=== PATIENT | female | born 1960 | race Caucasian/White ===

== ENCOUNTER 2023-07-30 13:46 | Emergency (ER) | payer OTHER, SELFPAY ==
[2023-07-30 13:50] VITALS: BP 117/80
[2023-07-30 14:01] VITALS: BP 147/76
[2023-07-30 14:28] LABS: % Basophils 1.1 % (0-2); % Eosinophils 1.8 % (0-6); % Immature Granulocytes 0.5 % (0-0.5); % Lymphocytes 15.6 % (20.5-51.1); % Monocytes 6.2 % (1.7-9.3); % Neutrophils 74.8 % (42.2-75.2); Absolute Basophils 0.1 10^3/uL (0-0.2); Absolute Eosinophils 0.2 10^3/uL (0-0.7); Absolute Lymphocytes 1.4 10^3/uL (1.2-3.4); Absolute Monocytes 0.6 10^3/uL (0.1-0.6); Absolute Neutrophils 6.6 10^3/uL (1.4-6.5); Hematocrit 42.9 % (37.0-47.0); Hemoglobin 15.4 g/dL (12.0-16.0); Mean Corp Hgb Conc. 35.9 g/dL (33.0-37.0); Mean Corpuscular Hgb 35.6 pg (27.0-31.0); Mean Corpuscular Volume 99.3 fL (81.0-99.0); Mean Platelet Volume 9.5 fL (7.4-10.4); Nucleated Red Blood Cells % 0 %; Platelet Count 336 10^3/uL (130-400); Red Blood Cell Count 4.32 10^6/uL (4.20-5.40); Red Cell Dist. Width 14.9 % (11.5-14.5); White Blood Cell Count 8.9 10^3/uL (4.8-10.8)
[2023-07-30 14:39] LABS: ALT (SGPT) 16 U/L (0-35); AST (SGOT) 26 U/L (14-36); Albumin 4.4 g/dl (3.5-5.0); Alkaline Phosphatase 173 U/L (38-126); Blood Urea Nitrogen 19 mg/dl (7-17); Calcium 9.9 mg/dl (8.4-10.2); Carbon Dioxide 25 mmol/L (22-30); Chloride 100 mmol/L (98-107); Glucose 124 mg/dl (70-99); Potassium 3.4 mmol/L (3.5-5.1); Sodium 134 mmol/L (135-145); Total Bilirubin 2.2 mg/dl (0.2-1.3); Total Protein 7.2 g/dl (6.3-8.2); eGFR > 60.00
[2023-07-30 15:00] VITALS: BP 129/92
--- NOTE | 2023-07-30 15:36 | ED.GENMED ---
History of Present Illness
General
Chief Complaint: Heart Rate Problem
Source: patient
Exam Limitations: none
Time Seen by Provider: 07/30/23 14:02
Travel History
Have you had any contact with someone who has COVID-19?: No
Do you have any symptoms of coronavirus? Fever > 100 degrees, chills, cough, shortness of breath, sore throat, loss of taste or smell, muscle aches, or headache?: No
History of Present Illness
History of Present Illness:
Patient went into atrial fibrillation about 36 hours ago. No chest pain shortness of breath mild lightheadedness. She took an extra Cardizem this morning, 480 mg total she is on thinners and is faithful with her medications
Past History
Past History
ED Past Medical History: Arrthythmia (Paroxysmal atrial fibrillation), Cancer (Breast cancer), HTN, Hypercholesterolemia and Other (History of alcohol abuse and sobriety)
ED Past Surgical History: Gynecological (Right mastectomy. Breast biopsy May 09, 2021)
Social History
Tobacco: Non-smoker
Alcohol: Occasional
Drug: None
Personal: Single
Living: alone
Employment: Employed
Family History
Family History: Other (Noncontributory)
Review of Systems
Review of Systems
All Other Systems: Not applicable
Constitutional: Denies fever
Respiratory: Reports no symptoms
Cardiac: Denies chest pain or syncope
Phy Exam
Physical Exam
Physical Exam:
GENERAL: Alert and oriented in no apparent distress
EYE: Orbits normal.
NECK: Supple, no significant adenopathy.
ENT: Pharynx without erythema
CARDIAC: Mildly irregular and tachycardic
LUNGS: Clear breath sounds,normal
ABDOMEN: Soft, without focal tenderness or distention
NEUROLOGICAL: Alert and oriented , grossly non-focal
SKIN: Warm and dry, no rash or lesion, no discoloration, skin intact.
MUSCULOSKELETAL: No edema,no deformity.Good color
PSYCH: Normal and appropriate interaction.
Course
Orders/Labs/Results
Orders:
Orders
07/30/23 13:54
Electrocardiogram (*1) Urgent
Reason for Study: Tachycardia
EKG- Treatment ONCE
07/30/23 14:08
Complete Blood Count/With Diff Urgent
Comprehensive Metabolic Panel Urgent
Abnormal Lab Results
07/30/23
14:08
MCV 99.3 H fL
(81.0-99.0)
MCH 35.6 H pg
(27.0-31.0)
RDW 14.9 H %
(11.5-14.5)
Absolute Neuts (auto) 6.6 H 10^3/uL
(1.4-6.5)
Lymphocytes % 15.6 L %
(20.5-51.1)
Sodium 134 L mmol/L
(135-145)
Potassium 3.4 L mmol/L
(3.5-5.1)
BUN 19 H mg/dl
(7-17)
Glucose 124 H mg/dl
(70-99)
Total Bilirubin 2.2 H mg/dl
(0.2-1.3)
Alkaline Phosphatase 173 H U/L
(38-126)
07/30/23 14:08
07/30/23 14:08
Vital Signs
Initial and Last Documented VS:
Initial Vital Signs
Temp Pulse Resp BP Pulse Ox
98.4 F 146 18 117/80 98
07/30/23 13:50 07/30/23 13:50 07/30/23 13:50 07/30/23 13:50 07/30/23 13:50
Last Documented Vital Signs
Temp Pulse Resp BP Pulse Ox
98.4 F 107 14 129/92 97
07/30/23 13:50 07/30/23 15:30 07/30/23 15:30 07/30/23 15:00 07/30/23 15:30
*Pulse Oximetry
Patient hypoxic: no
*EKG
Interpreted by ED Provider?: Yes
Interpretation: abnormal
Comparison EKG: changes noted
Heart Rate: 106
Rate: tachycardiac
Rhythm: a-fib
Winn: normal axis
Interval: normal interval
QRS Pattern: normal QRS
Ischemia: non-specific ST changes
*Science Professor Interpretation
Rate: tachycardiac
Interpretation: abnormal
Heart Rate: 110
Rhythm: a-fib
*Critical Care Note
Total Time (30-74mins, 75-104mins- exclusive of procedures): Not Applicable
Update Note
Update Note:
Patient remains in atrial fibrillation. Heart rate generally running about 100-1 10. Medically stable with no severe issues. Patient noted she had significant asystole with 1 cardioversion on rate control meds. Discussed with cardiology. Given
that patient had 480 mg of Cardizem CD they are very leery to have his cardiovert today with a concern for prolonged asystolic episode after cardioversion. They would prefer going home remaining in A-fib and close follow-up.
ED Attending Note
-
Portions of this chart may have been created with voice recognition software.� Occasional wrong word or��sound alike� substitutions may have occurred due to the inherent limitations of voice recognition software.
Discharge Plan
Departure
Patient Disposition: Home (Routine Discharge)
Date of Disposition: 07/30/23
Time of Disposition: 15:37
Patient with high blood pressure during this ER visit?: No
Discharge Problem:
Atrial fibrillation/RVR
Instructions: Atrial Fibrillation (DC), BLOOD PRESSURE
Prescriptions:
No Action
lorazepam 0.5 MG tablet
0.5 mg PO DAILYPRN PRN (Reason: severe anxiety)
Patient Comments:
07/30/2023, pt. filled this med. on 06/17/2023 for 45 tablets according to PDMP.
hydrochlorothiazide 25 MG tablet
25 mg PO DAILY
irbesartan 300 MG tablet
300 mg PO DAILY
letrozole 2.5 mg Tablet
2.5 mg PO DAILY
Xarelto 20 mg Tablet
20 mg PO DAILY
Ca-D3-mag [id number] [Calcium 600-D3 Plus (mag-zinc)] 600 mg calcium- 20 mcg-50 mg Tablet
1 tab PO BID
diltiazem HCl 240 mg Capsule,Ext.Rel 24h Degradable
240 mg PO DAILY
Patient Comments:
07/30/2023, per pt., capsules taken a few hours apart.
diltiazem HCl 240 mg Capsule,Ext.Rel 24h Degradable
240 mg PO DAILY PRN (Reason: afib)
ibuprofen 200 mg Tablet
600 mg PO DAILYPRN PRN (Reason: mild pain)
Referrals:
Allyssa Thomason MD [Family Provider] -
Activity Restrictions/Additional Instructions:
As we discussed, call the systems program manager for close follow-up in the next day or so. Continue your rate control medication. They may hold the rate control prior to cardioversion if you do not self convert
Interventions
Interventions:
*Risk Screen - Suicide Last Done: 07/30/23 13:50
*General Assessment Last Done: 07/30/23 13:50
*Neglect/Abuse Screening Last Done: 07/30/23 13:50
ED- Fall Risk Assessment Last Done: 07/30/23 14:06
*ED COVID-19 Vaccine History Last Done: 07/30/23 14:07
ED- Cardiac Assessment Last Done: 07/30/23 14:06
ED- Pulmonary Assessment Last Done: 07/30/23 14:06
== END 2023-07-30 15:49 | disposition home or self-care (01) ==
LOC: EMR 13:46
PROVIDERS: EMERGENCY PHYSICIAN Emergency Medicine; FAMILY PHYSICIAN Family Medicine
DX: I48.91 Unspecified atrial fibrillation (principal); I10 Essential (primary) hypertension; E78.00 Pure hypercholesterolemia, unspecified; Z85.3 Personal history of malignant neoplasm of breast; Z90.11 Acquired absence of right breast and nipple
CPT/HCPCS: 99283; 80053; 85025; 93005

== ENCOUNTER → 2023-08-01 10:23 | Day surgery (SDC) | payer OTHER, SELFPAY ==
[2023-08-01] MEDS: CARDIZEM CD 240 MG PO (11:20)
== END ==
LOC: CATH 10:23
PROVIDERS: ATTENDING PHYSICIAN Internal Medicine; FAMILY PHYSICIAN Family Medicine
DX: I48.0 Paroxysmal atrial fibrillation (principal); Z53.09 Procedure and treatment not carried out because of other contraindication; I10 Essential (primary) hypertension; G47.33 Obstructive sleep apnea (adult) (pediatric); Z85.3 Personal history of malignant neoplasm of breast; Z79.01 Long term (current) use of anticoagulants
CPT/HCPCS: 93005 ×2

== ENCOUNTER 2023-09-01 14:33 | Emergency (ER) | payer OTHER, SELFPAY ==
[2023-09-01 14:39] VITALS: BP 130/105
[2023-09-01 14:49] VITALS: BP 153/99
[2023-09-01 15:00] VITALS: BP 152/113
[2023-09-01 15:05] LABS: % Basophils 1.1 % (0-2); % Immature Granulocytes 0.2 % (0-0.5); % Lymphocytes 8.7 % (20.5-51.1); % Monocytes 1.4 % (1.7-9.3); % Neutrophils 88.6 % (42.2-75.2); Absolute Basophils 0.1 10^3/uL (0-0.2); Absolute Lymphocytes 0.6 10^3/uL (1.2-3.4); Absolute Monocytes 0.1 10^3/uL (0.1-0.6); Absolute Neutrophils 5.8 10^3/uL (1.4-6.5); Hematocrit 43.6 % (37.0-47.0); Hemoglobin 14.8 g/dL (12.0-16.0); Mean Corp Hgb Conc. 33.9 g/dL (33.0-37.0); Mean Corpuscular Volume 97.1 fL (81.0-99.0); Mean Platelet Volume 9.3 fL (7.4-10.4); Nucleated Red Blood Cells % 0 %; Platelet Count 347 10^3/uL (130-400); Red Blood Cell Count 4.49 10^6/uL (4.20-5.40); Red Cell Dist. Width 14.6 % (11.5-14.5); White Blood Cell Count 6.5 10^3/uL (4.8-10.8)
--- NOTE | 2023-09-01 15:06 | ED.GENMED ---
History of Present Illness
General
Chief Complaint: Cardiac Symptoms
Source: patient
Exam Limitations: none
Time Seen by Provider: 09/01/23 14:57
Travel History
Have you had any contact with someone who has COVID-19?: No
Do you have any symptoms of coronavirus? Fever > 100 degrees, chills, cough, shortness of breath, sore throat, loss of taste or smell, muscle aches, or headache?: No
History of Present Illness
History of Present Illness:
See MDM
Past History
Past History
ED Past Medical History: Arrthythmia (Paroxysmal atrial fibrillation), Cancer (Breast cancer), HTN, Hypercholesterolemia and Other (History of alcohol abuse and sobriety)
ED Past Surgical History: Gynecological (Right mastectomy. Breast biopsy May 09, 2021)
Social History
Tobacco: Non-smoker
Alcohol: Occasional
Drug: None
Personal: Single
Living: alone
Employment: Employed
Family History
Family History: Other (Noncontributory)
Phy Exam
Physical Exam
Physical Exam:
See MDM
Course
Orders/Labs/Results
Orders:
Orders
09/01/23 14:39
EKG [Electrocardiogram (*1)] Urgent
Reason for Study: Atrial Fibrillation
09/01/23 14:40
EKG- Treatment ONCE
09/01/23 14:54
Complete Blood Count/With Diff Urgent
Comprehensive Metabolic Panel Urgent
Troponin I Urgent
09/01/23 15:05
0.9% Sodium Chloride 1000 ml [Nss] 1,000 ml IV BOLUS
Diltiazem HCl [Cardizem] 20 mg IV NOW STA
09/01/23 15:18
Electrocardiogram (*1) Urgent
Reason for Study: Atrial Fibrillation
EKG- Treatment ONCE
Abnormal Lab Results
09/01/23
14:54
MCH 33.0 H pg
(27.0-31.0)
RDW 14.6 H %
(11.5-14.5)
Absolute Lymphs (auto) 0.6 L 10^3/uL
(1.2-3.4)
Neutrophils % 88.6 H %
(42.2-75.2)
Lymphocytes % 8.7 L %
(20.5-51.1)
Monocytes % 1.4 L %
(1.7-9.3)
BUN 30 H mg/dl
(7-17)
Glucose 187 H mg/dl
(70-99)
Total Bilirubin 1.6 H mg/dl
(0.2-1.3)
Alkaline Phosphatase 178 H U/L
(38-126)
09/01/23 14:54
09/01/23 14:54
Vital Signs
Initial and Last Documented VS:
Initial Vital Signs
Temp Pulse Resp BP Pulse Ox
97.8 F 52 17 130/105 99
09/01/23 14:39 09/01/23 14:39 09/01/23 14:39 09/01/23 14:39 09/01/23 14:39
Last Documented Vital Signs
Temp Pulse Resp BP Pulse Ox
97.8 F 75 15 152/113 97
09/01/23 14:39 09/01/23 16:00 09/01/23 16:00 09/01/23 15:07 09/01/23 16:00
MDM/Problems Addressed
Differential Diagnosis Includes:
HPI and MDM Narrative:
62-year-old female presenting with A-fib. She felt palpitations since 3 AM. She has a history of paroxysmal A-fib and is pending an ablation later in the next month. She is compliant with her Eliquis and her diltiazem. Patient has been
cardioverted in the past and has auto converted as well. She denies chest pain or shortness of breath
Upon my examination, patient intermittently appears to be going into A-fib with RVR and sinus rhythm on the monitor. Will give dose of Cardizem and continue to monitor
Physical exam
General: Well appearing and non-toxic
HEENT: protecting airway
Neck: appears supple
CV: No evidence of cyanosis. Tachycardic and irregular
Resp: No accessory muscle use
Abd: Non-distended
Extremities: No deformities. No calf tenderness or
Neuro: alert
Psych: Normal affect
Skin: Intact
Problems Addressed including Acute and Chronic Conditions affecting care:
1. Paroxysmal A-fib
Acuity: acute
Prognosis: unstable
Details: Will give dose of IV Cardizem in an attempt to chemically cardiovert
Updates
3:15 PM patient converted into sinus rhythm and feeling better
4:15 PM patient remains in sinus rhythm and feels comfortable going home
Differential Diagnosis (but not limited to): A-fib, dehydration
Testing considered: Troponin, D-dimer
Drug therapy (if applicable): OTC meds, please see d/c instruction regarding Rx drugs
Amount and/or Complexity of Data Reviewed
Clinical info obtained from: Patient
External data reviewed: N/A
Labs I independently reviewed (but not limited to): Troponin normal
Radiology: N/A
Pulse Ox: not hypoxic
EKG independently reviewed: A-fib, normal axis, no STEMI
Digital Traffic Coordinator: Intermittent between A-fib and sinus rhythm
Critical Care: N/A
Risk of Complication:
Social Determinants of health: Good social support
Discussed with other providers: N/A
Escalation of Care includes Admit/Obs: After being observed in the Emergency Department, pt stable for discharge.
Occasional wrong word or 'sound a like' substitutions may have occurred due to the inherent limitations of voice recognition software. Read the chart carefully and recognize, using context, where substitutions have occurred.
*Critical Care Note
Total Time (30-74mins, 75-104mins- exclusive of procedures): Not Applicable
ED Attending Note
-
Portions of this chart may have been created with voice recognition software.� Occasional wrong word or��sound alike� substitutions may have occurred due to the inherent limitations of voice recognition software.
Discharge Plan
Departure
Patient Disposition: Home (Routine Discharge)
Date of Disposition: 09/01/23
Time of Disposition: 16:11
Patient with high blood pressure during this ER visit?: Yes
Discharge Problem:
A-fib
Instructions: Atrial Fibrillation (DC), BLOOD PRESSURE
Prescriptions:
No Action
lorazepam 0.5 MG tablet
0.5 mg PO DAILYPRN PRN (Reason: severe anxiety)
Patient Comments:
07/30/2023, pt. filled this med. on 06/17/2023 for 45 tablets according to PDMP.
hydrochlorothiazide 25 MG tablet
25 mg PO DAILY
irbesartan 300 MG tablet
300 mg PO DAILY
letrozole 2.5 mg Tablet
2.5 mg PO DAILY
Xarelto 20 mg Tablet
20 mg PO DAILY
Ca-D3-mag [id number]-[id number]-bor [Calcium 600-D3 Plus (mag-zinc)] 600 mg calcium- 20 mcg-50 mg Tablet
1 tab PO BID
diltiazem HCl 240 mg Capsule,Ext.Rel 24h Degradable
240 mg PO DAILY
Patient Comments:
07/30/2023, per pt., capsules taken a few hours apart.
diltiazem HCl 240 mg Capsule,Ext.Rel 24h Degradable
240 mg PO DAILY PRN (Reason: afib)
ibuprofen 200 mg Tablet
600 mg PO DAILYPRN PRN (Reason: mild pain)
Referrals:
Allyssa Fernandez MD [Family Provider] -
Activity Restrictions/Additional Instructions:
Please return for any worsening symptoms.
You may return at any time if you have further concerns.
Please follow up with your doctor at the first available appointment, preferably this week.
Thank you for choosing [facility].
Interventions
Interventions:
*Risk Screen - Suicide Last Done: 09/01/23 14:39
*General Assessment Last Done: 09/01/23 14:39
*Neglect/Abuse Screening Last Done: 09/01/23 14:39
*ED COVID-19 Vaccine History Last Done: 09/01/23 14:39
ED- Pulmonary Assessment Last Done: 09/01/23 14:51
ED- Cardiac Assessment Last Done: 09/01/23 14:51
[2023-09-01] MEDS: CARDIZEM 20 MG IV (15:07)
[2023-09-01] MEDS: NSS 1000 IV (15:08)
[2023-09-01 15:18] LABS: ALT (SGPT) 17 U/L (0-35); AST (SGOT) 27 U/L (14-36); Albumin 4.5 g/dl (3.5-5.0); Alkaline Phosphatase 178 U/L (38-126); Blood Urea Nitrogen 30 mg/dl (7-17); Calcium 9.7 mg/dl (8.4-10.2); Carbon Dioxide 25 mmol/L (22-30); Chloride 100 mmol/L (98-107); Glucose 187 mg/dl (70-99); Potassium 3.5 mmol/L (3.5-5.1); Sodium 135 mmol/L (135-145); Total Bilirubin 1.6 mg/dl (0.2-1.3); Total Protein 7.2 g/dl (6.3-8.2); eGFR > 60.00
[2023-09-01 15:29] LABS: Troponin I < 0.012 ng/ml
== END 2023-09-01 16:17 | disposition home or self-care (01) ==
LOC: EMR 14:33
PROVIDERS: EMERGENCY PHYSICIAN Student in an Organized Health Care Education/Training Program; FAMILY PHYSICIAN Internal Medicine
DX: I48.0 Paroxysmal atrial fibrillation (principal); I10 Essential (primary) hypertension; Z79.01 Long term (current) use of anticoagulants
CPT/HCPCS: 99284; 96374; 96361; 80053; 84484; 85025; 93005

== ENCOUNTER 2023-11-09 12:33 | Emergency (ER) | payer OTHER, SELFPAY ==
[2023-11-09] VITALS (7 sets, daily range): BP systolic 114–157; BP diastolic 62–135
[2023-11-09 13:31] LABS: % Basophils 0.8 % (0-2); % Eosinophils 2.3 % (0-6); % Immature Granulocytes 0.2 % (0-0.5); % Lymphocytes 17.2 % (20.5-51.1); % Monocytes 5.9 % (1.7-9.3); % Neutrophils 73.6 % (42.2-75.2); Absolute Basophils 0.1 10^3/uL (0-0.2); Absolute Eosinophils 0.2 10^3/uL (0-0.7); Absolute Lymphocytes 1.5 10^3/uL (1.2-3.4); Absolute Monocytes 0.5 10^3/uL (0.1-0.6); Absolute Neutrophils 6.5 10^3/uL (1.4-6.5); Hematocrit 40.8 % (37.0-47.0); Hemoglobin 14.6 g/dL (12.0-16.0); Mean Corp Hgb Conc. 35.8 g/dL (33.0-37.0); Mean Corpuscular Volume 94.9 fL (81.0-99.0); Mean Platelet Volume 9.4 fL (7.4-10.4); Nucleated Red Blood Cells % 0 %; Platelet Count 251 10^3/uL (130-400); Red Cell Dist. Width 13.6 % (11.5-14.5); White Blood Cell Count 8.9 10^3/uL (4.8-10.8)
[2023-11-09] MEDS: CARDIZEM 10 MG IV (13:39)
[2023-11-09] MEDS: CARDIZEM 125 IV (13:47)
[2023-11-09 13:58] LABS: Chloride 100 mmol/L (98-107)
[2023-11-09 14:02] LABS: Blood Urea Nitrogen 26 mg/dl (7-17); Calcium 9.3 mg/dl (8.4-10.2); Carbon Dioxide 27 mmol/L (22-30); Glucose 114 mg/dl (70-99); Potassium 3.4 mmol/L (3.5-5.1); Sodium 137 mmol/L (135-145); eGFR > 60.00
--- NOTE | 2023-11-09 14:37 | ED.GENMED ---
History of Present Illness
<Farhad Lozada MD - Last Filed: 11/10/23 14:04>
General
Chief Complaint: Chest Pain
Source: patient
Exam Limitations: none
Time Seen by Provider: 11/09/23 12:57
Travel History
Have you had any contact with someone who has COVID-19?: No
Do you have any symptoms of coronavirus? Fever > 100 degrees, chills, cough, shortness of breath, sore throat, loss of taste or smell, muscle aches, or headache?: No
History of Present Illness
History of Present Illness:
Patient went into atrial fibrillation early yesterday morning palpitations some lightheadedness. No chest pain. History of same. Faithful with her anticoagulation. On Cardizem to 40/day
Past History
<Farhad Lozada MD - Last Filed: 11/10/23 14:04>
Past History
ED Past Medical History: Arrthythmia (Paroxysmal atrial fibrillation), Cancer (Breast cancer), HTN, Hypercholesterolemia and Other (History of alcohol abuse and sobriety)
ED Past Surgical History: Gynecological (Right mastectomy. Breast biopsy May 09, 2021)
Social History
Tobacco: Non-smoker
Alcohol: Occasional
Drug: None
Personal: Single
Living: alone
Employment: Employed
Family History
Family History: Other (Noncontributory)
Review of Systems
<Farhad Lozada MD - Last Filed: 11/10/23 14:04>
Review of Systems
All Other Systems: Not applicable
Cardiac: Denies chest pain or syncope
Phy Exam
<Farhad Lozada MD - Last Filed: 11/10/23 14:04>
Physical Exam
Physical Exam:
GENERAL: Alert and oriented in no apparent distress
EYE: Orbits normal.
NECK: Supple
CARDIAC: Tachycardic and irregular
LUNGS: Clear breath sounds,normal
ABDOMEN: Soft, without focal tenderness or distention
NEUROLOGICAL: Alert and oriented , grossly non-focal
SKIN: Warm and dry, no rash or lesion, no discoloration, skin intact.
MUSCULOSKELETAL: No edema,no deformity.Good color
PSYCH: Normal and appropriate interaction.
Scores
<Farhad Lozada MD - Last Filed: 11/10/23 14:04>
Heart Score for Chest Pain Patients
STEMI patient?: Not applicable
Course
<Farhad Lozada MD - Last Filed: 11/10/23 14:04>
Orders/Labs/Results
Orders:
Orders
11/09/23 12:36
EKG [Electrocardiogram (*1)] Urgent
Reason for Study: Chest Pain
11/09/23 12:37
EKG- Treatment ONCE
11/09/23 13:20
Diltiazem 125 mg/125 ml Nss [Cardizem] 125 mg in 125 ml IV NOW
Initial dose in mg/hr, then titrate:: 5
Titrate to keep:: Heart rate 80-100 bpm
Titrate by mg/hr:: 5 mg/hr
Frequency of titrations (minutes):: 15
Maximum dose in mg/hr:: 15
Diltiazem HCl [Cardizem] 10 mg IV NOW STA
11/09/23 13:25
Basic Metabolic Panel Urgent
Complete Blood Count/With Diff Urgent
11/09/23 16:45
Diltiazem HCl [Cardizem] 20 mg IV NOW STA
11/09/23 17:51
Electrocardiogram (*1) Stat
Reason for Study: Bradycardia / Tachycardia
EKG- Treatment ONCE
Abnormal Lab Results
11/09/23
13:25
MCH 34.0 H pg
(27.0-31.0)
Lymphocytes % 17.2 L %
(20.5-51.1)
Potassium 3.4 L mmol/L
(3.5-5.1)
BUN 26 H mg/dl
(7-17)
Glucose 114 H mg/dl
(70-99)
11/09/23 13:25
11/09/23 13:25
Vital Signs
Initial and Last Documented VS:
Initial Vital Signs
Temp Pulse Resp BP Pulse Ox
99.3 F 113 18 144/104 100
11/09/23 12:42 11/09/23 12:42 11/09/23 12:42 11/09/23 12:42 11/09/23 12:42
Last Documented Vital Signs
Temp Pulse Resp BP Pulse Ox
99.3 F 94 18 137/87 97
11/09/23 12:42 11/09/23 18:00 11/09/23 18:00 11/09/23 17:03 11/09/23 16:58
<Jf Ordaz MD - Last Filed: 11/09/23 18:12>
Orders/Labs/Results
Orders:
Orders
11/09/23 12:36
EKG [Electrocardiogram (*1)] Urgent
Reason for Study: Chest Pain
11/09/23 12:37
EKG- Treatment ONCE
11/09/23 13:20
Diltiazem 125 mg/125 ml Nss [Cardizem] 125 mg in 125 ml IV NOW
Initial dose in mg/hr, then titrate:: 5
Titrate to keep:: Heart rate 80-100 bpm
Titrate by mg/hr:: 5 mg/hr
Frequency of titrations (minutes):: 15
Maximum dose in mg/hr:: 15
Diltiazem HCl [Cardizem] 10 mg IV NOW STA
11/09/23 13:25
Basic Metabolic Panel Urgent
Complete Blood Count/With Diff Urgent
11/09/23 16:45
Diltiazem HCl [Cardizem] 20 mg IV NOW STA
11/09/23 17:51
Electrocardiogram (*1) Stat
Reason for Study: Bradycardia / Tachycardia
EKG- Treatment ONCE
Abnormal Lab Results
11/09/23
13:25
MCH 34.0 H pg
(27.0-31.0)
Lymphocytes % 17.2 L %
(20.5-51.1)
Potassium 3.4 L mmol/L
(3.5-5.1)
BUN 26 H mg/dl
(7-17)
Glucose 114 H mg/dl
(70-99)
11/09/23 13:25
11/09/23 13:25
Vital Signs
Initial and Last Documented VS:
Initial Vital Signs
Temp Pulse Resp BP Pulse Ox
99.3 F 113 18 144/104 100
11/09/23 12:42 11/09/23 12:42 11/09/23 12:42 11/09/23 12:42 11/09/23 12:42
Last Documented Vital Signs
Temp Pulse Resp BP Pulse Ox
99.3 F 94 18 137/87 97
11/09/23 12:42 11/09/23 18:00 11/09/23 18:00 11/09/23 17:03 11/09/23 16:58
<Farhad Lozada MD - Last Filed: 11/10/23 14:04>
MDM/Problems Addressed
Differential Diagnosis Includes:
PAF/RVR. Long history of same. Medically stable. Discussed cardioversion versus rate control with hopeful spontaneous cardioversion on the calcium channel meghna. This has happened multiple times in the past. Patient would prefer this
approach. She is aware that if she does not convert she will need to go home with further rate control to follow-up for outpatient planned cardioversion
<Farhad Lozada MD - Last Filed: 11/10/23 14:04>
*Pulse Oximetry
Patient hypoxic: no
*EKG
Interpretation: abnormal
Comparison EKG: changes noted
Heart Rate: 127
Rate: tachycardiac
Rhythm: a-fib
[place]: normal axis
Interval: normal interval
QRS Pattern: normal QRS
Ischemia: non-specific ST changes
*Combatant Diver Officer Interpretation
Rate: tachycardiac
Interpretation: abnormal
Heart Rate: 110
Rhythm: a-fib
*Critical Care Note
Total Time (30-74mins, 75-104mins- exclusive of procedures): 40
Data Reviewed
Review of Other/Old Records Reveals: Labs and Records
<Farhad Lozada MD - Last Filed: 11/10/23 14:04>
Update Note
Update Note:
Patient still in atrial fibrillation. Mild RVR. If she continues to remain stable but does not convert she will take an extra 120 mg Cardizem. Reviewed this with cardiology
UPDATE (Jf Ordaz MD)
I saw and examined patient after signout and reviewed all labs and imaging.
Focused HPI: 62-year-old female with history as documented notable for A-fib on Xarelto who sees Dr. Rene for cardiology who presents to the emergency room in A-fib with RVR. She is scheduled for an outpatient ablation with Dr. Peterson on
. Primary complaint is palpitations and pressure that she reports onset was yesterday morning. She has been compliant with all meds including her Cardizem and Xarelto.
Physical exam: Awake alert not in distress. Mildly hypertensive in triage normalized by my assessment. On my assessment she remains tachycardic irregularly irregular on the monitor consistent with A-fib. She has no cardiac rubs gallops or
murmurs. No edema in her extremities.
Medical Decision Making: Patient initially evaluated and treated for A-fib with RVR�she had lab work including a CBC which was unremarkable, CMP which showed marginal hypokalemia. There was consideration given to ED cardioversion but there was
concern as during a prior cardioversion she had a significant (reportedly 9-second long) pause. Apparently after discussion with cardiology and patient decision was made to instead attempt rate control here in the emergency room. She was given 10
mg of IV diltiazem as a bolus and then was started on a steady rate of 7.5 mg/h infusion�there was apparently concern about titrating beyond this due to a soft blood pressure. On my assessment she has been here for about 3 hours and remains with
heart rate fluctuating between 120s and 130s despite diltiazem bolus and infusion as above. Will repeat bolus at 20 mg IV push and continue to monitor.
Status post additional diltiazem bolus patient's heart rate remains essentially unchanged. I had a long discussion with the patient and she asked whether cardioversion is a possibility here�discussed case with cardiology they are comfortable with
attempt at ED cardioversion despite history of pauses�transient pauses are not unusual status post cardioversion. While discussing consent for cardioversion with the patient her heart rate came down to the 80s and appeared sinus on the monitor,
repeat EKG confirmed spontaneous conversion to sinus rhythm. Will discharge patient and she will follow-up with her starch cooker as an outpatient for planned ablation. Spoke about return precautions and all questions answered.
cc=40 minutes
<Jf Ordaz MD - Last Filed: 11/09/23 18:12>
Update Note
Update Note:
Patient still in atrial fibrillation. Mild RVR. If she continues to remain stable but does not convert she will take an extra 120 mg Cardizem. Reviewed this with cardiology
UPDATE (Jf Ordaz MD)
I saw and examined patient after signout and reviewed all labs and imaging.
Focused HPI: 62-year-old female with history as documented notable for A-fib on Xarelto who sees Dr. Rene for cardiology who presents to the emergency room in A-fib with RVR. She is scheduled for an outpatient ablation with Dr. Peterson on
. Primary complaint is palpitations and pressure that she reports onset was yesterday morning. She has been compliant with all meds including her Cardizem and Xarelto.
Physical exam: Awake alert not in distress. Mildly hypertensive in triage normalized by my assessment. On my assessment she remains tachycardic irregularly irregular on the monitor consistent with A-fib. She has no cardiac rubs gallops or
murmurs. No edema in her extremities.
Medical Decision Making: Patient initially evaluated and treated for A-fib with RVR�she had lab work including a CBC which was unremarkable, CMP which showed marginal hypokalemia. There was consideration given to ED cardioversion but there was
concern as during a prior cardioversion she had a significant (reportedly 9-second long) pause. Apparently after discussion with cardiology and patient decision was made to instead attempt rate control here in the emergency room. She was given 10
mg of IV diltiazem as a bolus and then was started on a steady rate of 7.5 mg/h infusion�there was apparently concern about titrating beyond this due to a soft blood pressure. On my assessment she has been here for about 3 hours and remains with
heart rate fluctuating between 120s and 130s despite diltiazem bolus and infusion as above. Will repeat bolus at 20 mg IV push and continue to monitor.
Status post additional diltiazem bolus patient's heart rate remains essentially unchanged. I had a long discussion with the patient and she asked whether cardioversion is a possibility here�discussed case with cardiology they are comfortable with
attempt at ED cardioversion despite history of pauses�transient pauses are not unusual status post cardioversion. While discussing consent for cardioversion with the patient her heart rate came down to the 80s and appeared sinus on the monitor,
repeat EKG confirmed spontaneous conversion to sinus rhythm. Will discharge patient and she will follow-up with her starch cooker as an outpatient for planned ablation. Spoke about return precautions and all questions answered.
ED Attending Note
<Farhad Lozada MD - Last Filed: 11/10/23 14:04>
-
Portions of this chart may have been created with voice recognition software.� Occasional wrong word or��sound alike� substitutions may have occurred due to the inherent limitations of voice recognition software.
Discharge Plan
Departure
Patient Disposition: Home (Routine Discharge)
Date of Disposition: 11/09/23
Time of Disposition: 18:06
Patient with high blood pressure during this ER visit?: Yes
Discharge Problem:
Atrial fibrillation
Instructions: Atrial Fibrillation (DC)
Prescriptions:
No Action
lorazepam 0.5 MG tablet
0.5 mg PO DAILYPRN PRN (Reason: severe anxiety)
Patient Comments:
11/09/2023: last filled 10/25/23, 30 tabs for 30 days from [facility]
hydrochlorothiazide 25 MG tablet
25 mg PO DAILY
irbesartan 300 MG tablet
300 mg PO DAILY
letrozole 2.5 mg Tablet
2.5 mg PO DAILY
Xarelto 20 mg Tablet
20 mg PO DAILY
Ca-D3-mag [id number]-aba-adelaide-bor [Calcium 600-D3 Plus (mag-zinc)] 600 mg calcium- 20 mcg-50 mg Tablet
1 tab PO BID
diltiazem HCl 240 mg Capsule,Ext.Rel 24h Degradable
240 mg PO DAILY
Patient Comments:
07/30/2023, per pt., capsules taken a few hours apart.
diltiazem HCl 240 mg Capsule,Ext.Rel 24h Degradable
240 mg PO DAILY PRN (Reason: afib)
ibuprofen 200 mg Tablet
600 mg PO DAILYPRN PRN (Reason: mild pain)
Referrals:
Griffin Faria MD [Active] - Call in 1-3 days for appt
Allyssa Thomason MD [Family Provider] -
Activity Restrictions/Additional Instructions:
Thank you for visiting the Emergency Department at [facility].
1. Please schedule a follow up appointment as directed. Call first thing tomorrow morning to make an appointment.
2. If indicated, please take your medications as instructed and indicated on discharge paperwork.
3. If any of your symptoms do not improve, or persist, or become more severe within 6-12 hours, please return to the emergency department for further care.
4. Please return to the emergency department if you develop a headache, neck pain/stiffness, fever greater than 100.4F, chest pain, shortness of breath, persistent nausea, vomiting, slurred speech, difficulty walking, numbness/tingling, weakness,
signs of infection or any other symptoms that are worrisome to you.
Please call [phone] if you have any questions.
Interventions
Interventions:
*Risk Screen - Suicide Last Done: 11/09/23 12:42
*General Assessment Last Done: 11/09/23 12:42
*Neglect/Abuse Screening Last Done: 11/09/23 12:42
ED- Fall Risk Assessment Last Done: 11/09/23 13:53
*ED COVID-19 Vaccine History Last Done: 11/09/23 13:53
*Nursing Disposition Last Done: 11/09/23 18:27
ED- Cardiac Assessment Last Done: 11/09/23 13:07
Discharge Date and Time
Discharge Date/Time: 11/09/23 18:28
Print Language: MOLDOVAN
[2023-11-09] MEDS: CARDIZEM 20 MG IV (16:57)
== END 2023-11-09 18:28 | disposition home or self-care (01) ==
LOC: EMR 12:33
PROVIDERS: EMERGENCY PHYSICIAN Emergency Medicine; FAMILY PHYSICIAN Family Medicine
DX: I48.0 Paroxysmal atrial fibrillation (principal); R42 Dizziness and giddiness; I10 Essential (primary) hypertension; E78.00 Pure hypercholesterolemia, unspecified; F10.11 Alcohol abuse, in remission; Z85.3 Personal history of malignant neoplasm of breast; Z90.11 Acquired absence of right breast and nipple; Z79.01 Long term (current) use of anticoagulants; Z88.8 Allergy status to other drugs, medicaments and biological substances
CPT/HCPCS: 99291; 96365; 96366 ×2; 80048; 85025; 93005

== ENCOUNTER → 2023-11-25 11:01 | Outpatient (REF) | payer OTHER, SELFPAY ==
[2023-11-25 13:23] LABS: INR 1.04; PT 13.5 Sec (11.4-14.6)
== END ==
LOC: REG 11:01
PROVIDERS: ATTENDING PHYSICIAN Internal Medicine Critical Care Medicine; REFERRING PHYSICIAN Family Medicine
DX: Z51.81 Encounter for therapeutic drug level monitoring (principal)
CPT/HCPCS: 36415; 85610

== ENCOUNTER 2024-01-13 07:06 | Day surgery (SDC) | payer OTHER, SELFPAY ==
--- NOTE | 2024-01-07 09:02 | PTCARENOTE ---
Abn ECG, Dr. Galvan notified. Dr. Galvan contacted Dr. Downs. Per Dr. Dowsn, Dr. Israel saw patient on 01/05 and cleared her. no requests at this time.
[2024-01-13 07:04] VITALS: BMI 37.3
[2024-01-13 07:05] VITALS: BP 150/81; BMI 37.3
[2024-01-13 08:45] VITALS: BP 148/75; BP 150/81
[2024-01-13 09:16] VITALS: BP 134/85
[2024-01-13 09:45] VITALS: BP 142/84
[2024-01-13 10:00] VITALS: BP 144/85
== END 2024-01-13 10:13 | disposition home or self-care (01) ==
LOC: SDS 07:06
PROVIDERS: ATTENDING PHYSICIAN Internal Medicine Critical Care Medicine
DX: R91.1 Solitary pulmonary nodule (principal)
CPT/HCPCS: 31623; 31654; 31627; 31624; 88305; 71045; 76000; 88112; C1887

== ENCOUNTER 2024-03-09 08:27 | Day surgery (SDC) | payer OTHER, SELFPAY ==
[2024-03-05 10:05] VITALS: BMI 36.5
[2024-03-05 10:54] LABS: % Basophils 1.3 % (0-2); % Eosinophils 3.8 % (0-6); % Immature Granulocytes 0.3 % (0-0.5); % Lymphocytes 14.9 % (20.5-51.1); % Monocytes 5.5 % (1.7-9.3); % Neutrophils 74.2 % (42.2-75.2); Absolute Basophils 0.1 10^3/uL (0-0.2); Absolute Eosinophils 0.3 10^3/uL (0-0.7); Absolute Lymphocytes 1.2 10^3/uL (1.2-3.4); Absolute Monocytes 0.4 10^3/uL (0.1-0.6); Absolute Neutrophils 5.8 10^3/uL (1.4-6.5); Hematocrit 40.5 % (37.0-47.0); Hemoglobin 14.2 g/dL (12.0-16.0); Mean Corp Hgb Conc. 35.1 g/dL (33.0-37.0); Mean Corpuscular Volume 99.8 fL (81.0-99.0); Mean Platelet Volume 9.2 fL (7.4-10.4); Nucleated Red Blood Cells % 0 %; Platelet Count 303 10^3/uL (130-400); Red Blood Cell Count 4.06 10^6/uL (4.20-5.40); Red Cell Dist. Width 14.5 % (11.5-14.5); White Blood Cell Count 7.8 10^3/uL (4.8-10.8)
[2024-03-05 11:00] LABS: INR 4.47; PT 43.3 Sec (11.4-14.6)
[2024-03-05 11:08] LABS: ALT (SGPT) 15 U/L (0-35); AST (SGOT) 24 U/L (14-36); Albumin 4.5 g/dl (3.5-5.0); Alkaline Phosphatase 159 U/L (38-126); Blood Urea Nitrogen 28 mg/dl (7-17); Calcium 9.5 mg/dl (8.4-10.2); Carbon Dioxide 30 mmol/L (22-30); Chloride 97 mmol/L (98-107); Estimated Creatinine Clearance 90 ml/min; Glucose 120 mg/dl (70-99); Magnesium 2.1 mg/dl (1.6-2.3); Sodium 140 mmol/L (135-145); Total Bilirubin 2.6 mg/dl (0.2-1.3); eGFR > 60.00
[2024-03-09] VITALS (18 sets, daily range): BP systolic 105–145; BP diastolic 63–104; BMI 38.0
[2024-03-09 11:57] LABS: ACT-LR - POC 355 Seconds (116-155)
[2024-03-09 12:17] LABS: ACT-LR - POC 335 Seconds (116-155)
--- NOTE | 2024-03-09 12:55 | ITS.CL.ABL ---
Offset Press Assistant - Ablation
Ablation
Procedure Report:
ELECTROPHYSIOLOGIC STUDY AND POSSIBLE ABLATION
DATE: 03/09/24
Primary Care Provider: Dr Allyssa Thomason
Primary Gas Pumper: Dr Sree Faria
INDICATION:
Symptomatic Atrial Fibrillation.
Paroxysmal
HISTORY: See H and P.
Symptomatic AF, poorly controlled with attempted medical therapy
HAS-BLED: 0
CHADSVASc: 2
HTN
Gender
PRESENTING RHYTHM: SR
HISTORY: See H and P.
Symptomatic AF, poorly controlled with attempted medical therapy.
ANTICOAGULATION: Rivaroxaban
'TIME-OUT': called and confirmed.
SEDATION/ANESTHESIA: provided via the anesthesia department using general anesthesia.
PROCEDURE:
Ultrasound Guidance performed by pa was utilized for femoral venous Vascular Access b/l.
A decapolar CS catheter was placed within the CS for mapping and pacing.
The intracardiac ultrasound catheter was positioned in the RA for continuous intracardiac ultrasound imaging.
Heparin bolus and infusion to target ACT at 300 -350 seconds was administered. Transseptal puncture was performed. This entailed advancing a sheath with dilator into the superior vena cava and withdrawing both (monitoring intracardiac ultrasound,
fluoroscopy and tip pressure) with the tip oriented toward the atrial septum. The fossa ovalis was engaged (indicated by sudden displacement of the sheath tip as well as tenting of the fossa seen on intracardiac ultrasound).
AcSitScape transseptal system was used. Left atrial catheter position was confirmed by echocardiographic imaging, pressure monitoring (LA mean pressure [ ] mm Hg) and fluoroscopy. The sheath was advanced over the dilator and positioned in the left
atrium.
The multipolar mapping catheter was initially positioned through the transseptal sheath for high density mapping.
Geometry and voltage mapping was performed using the [facility] multipolar grid catheter. Navex was utilized for three-dimensional electroanatomical mapping.
A 3-D map was created using Navex. A 3-D reconstructed CT image was compared to the 3-D Navex map to assist in anatomic evaluation, mapping and ablation.
The Combined Effort Pulse Select PFA catheter and system was used for cardiac ablation. Catheter positioning was guided and confirmed using both I.C.E. and fluoroscopy.
PV isolation approach was used to electrically isolate each PV ostia (LSPV, LIPV, RSPV, RIPV).
Additional energy applications/additional ablation set was required to accomplish wide area circumferential ablation around each of the pulmonary vein sets and additionally ablation to accomplish LA posterior wall ablation.
Remapping with the [facility] multipolar grid catheter found that all PVPs were eliminated at each vein demonstrating entrance block. Also pacing from the multipolar mapping catheter around the the circumference of the ostia was performed at 10 ma and
2.0 msec output to assess for exit block. This demonstrated electrical isolation at each of the pulmonary vein ostia (LSPV, LIPV, RSPV, RIPV). There is also entrance and exit block at the LA posterior wall.
Programmed electrostimulation failed to induce any sustained arrhythmias.
I.C.E. :
Pre-Ablation Post-Ablation
LVEF: 55% 55%
WMA: None none
Pericardial effusion: Trace trace
COMPLICATIONS:
None
SUMMARY:
- Mapping and ablation to isolate the PVs
- Additional AF ablation set after PVI.
- 3-D Electroanatomical Mapping
- Intracardiac Ultrasound
Post ablation, I called and left a message with her designated personal care aide, Mir.
RECOMMENDATIONS:
- Observe in monitored bed.
- Maintain oral anticoagulation.
- Continue diltiazem
- Office visit with Dr. Faria In 3 months.
- Continue cardiovascular care with Dr Sree Faria
Copy to:
Dr Allyssa Thomason
Dr Sree Faria
[2024-03-09] MEDS: TYLENOL 650 MG PO ×2 (15:10→20:27)
--- NOTE | 2024-03-09 15:47 | CM ---
Reviewed chart. Met with Ms. Calles to review discharge plans. She states prior to admission she resides alone in a first floor condo with one step to enter. She states prior to admission she was independent with ambulation and adls. She states
she has a CPAP Machine at home and no other DME in the home. She states she has a prescription plan and uses [facility]. The discharge plan is to return home when medical stable.
[2024-03-09 15:51] LABS: ACT-LR - POC > 397 Seconds (116-155)
[2024-03-09] MEDS: XARELTO 20 MG PO (17:53)
[2024-03-09] MEDS: ATIVAN 0.5 MG PO (20:27)
[2024-03-10 02:42] VITALS: BMI 38.0
[2024-03-10 04:17] VITALS: BP 124/76
[2024-03-10 04:37] VITALS: BMI 38.3
[2024-03-10] MEDS: TORADOL 15 MG IV (04:53)
[2024-03-10 04:58] LABS: Hematocrit 32.8 % (37.0-47.0); Hemoglobin 11.9 g/dL (12.0-16.0); Mean Corp Hgb Conc. 36.3 g/dL (33.0-37.0); Mean Corpuscular Hgb 35.8 pg (27.0-31.0); Mean Corpuscular Volume 98.8 fL (81.0-99.0); Mean Platelet Volume 9.1 fL (7.4-10.4); Platelet Count 227 10^3/uL (130-400); Red Blood Cell Count 3.32 10^6/uL (4.20-5.40); Red Cell Dist. Width 14.3 % (11.5-14.5); White Blood Cell Count 8.1 10^3/uL (4.8-10.8)
[2024-03-10 04:59] LABS: Blood Urea Nitrogen 21 mg/dl (7-17); Calcium 8.6 mg/dl (8.4-10.2); Carbon Dioxide 27 mmol/L (22-30); Chloride 100 mmol/L (98-107); Estimated Creatinine Clearance 115 ml/min; Glucose 157 mg/dl (70-99); Magnesium 1.9 mg/dl (1.6-2.3); Potassium 3.5 mmol/L (3.5-5.1); Sodium 136 mmol/L (135-145); eGFR > 60.00
[2024-03-10 06:00] VITALS: BMI 38.3
--- NOTE | 2024-03-10 07:08 | PTCARENOTE ---
Pt NSR on monitor, VSS, Pt denies any pain or discomfort. Rt groin dsg intact, no s/s of bleeding or hematoma. Safety measures in place
--- NOTE | 2024-03-10 07:53 | W.PN.CARDCBS ---
Addendum entered and electronically signed by Farhad Peterson MD 03/10/24 13:00:
Patient seen, interviewed and examined by me.
Her only complaint is headache which she says is typical for her after general anesthesia.
Well-appearing, no acute distress
Regular rate and rhythm with normal S1 and S2, no S3 no S4. There is a grade 1/6 apical holosystolic murmur and no rubs. PMI is normally placed.
Lungs are clear to auscultation bilaterally without wheezes rales or rhonchi.
Abdomen soft nontender nondistended with normoactive bowel sounds
Extremities show trace pretibial edema bilaterally no clubbing or cyanosis. Right groin without bleeding, hematoma or bruits.
Neurologic exam is grossly nonfocal.
Agree with advanced practice professionals assessment and plan as noted below.
I reviewed yesterday's findings, procedure and results with her.
Doing well after her ablation, telemetry reviewed and she has been maintaining sinus rhythm.
Right groin without complications.
Continue diltiazem, continue oral anticoagulation
We reviewed discharge instructions including activity restrictions over the next 5 days. She tells me she understands.
Regarding her headache, she tells me that it has been typical for her after general anesthesia and in the past Tylenol with codeine has worked well for her. We will provide her with a limited prescription to treat the headache over the next couple
of days.
From a cardiac standpoint she is stable for discharge to home.
All of her questions have been answered.
Original Note:
Today's Communication / Plan
-
stable for d/c home
Impression / Plan
-
Primary care physician: Allyssa Thomason MD
Primary topographic computator: Griffin Faria MD
Impression:
Symptomatic paroxysmal Afib
post PVI/PFA 03/09/24
HTN
BALDEV/CPAP
Breast cancer post mastectomy 2020
osteopenia
Lung nodule
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
Plan:
Post ablation feeling well
mod h/a after anesthesia, given Toradol this am
groin stable
tele SR
OAC Xarelto
continue Diltiazem
Activity restrictions reviewed
Will give Tylenol #3 for h/a (6 tabs only), states this has worked for her in the past
f/u Dr. Faria in 1 mo
stable for d/c home
Progress Note - Darklight Inspector
Subjective
Date of Service: March 10, 2024
no cp, sob, mild h/a this am improved after toradol
Objective
Labs:
03/10/24 04:22
03/10/24 04:22
Labs
Hgb 11.9 g/dL (12.0-16.0) L 03/10/24 04:22
Hct 32.8 % (37.0-47.0) L 03/10/24 04:22
Plt Count 227 10^3/uL (130-400) D 03/10/24 04:22
PT 43.3 Sec (11.4-14.6) H 03/05/24 10:33
INR 4.47 03/05/24 10:33
Sodium 136 mmol/L (135-145) 03/10/24 04:22
Potassium 3.5 mmol/L (3.5-5.1) 03/10/24 04:22
BUN 21 mg/dl (7-17) H 03/10/24 04:22
Creatinine 0.7 mg/dL (0.6-1.0) 03/10/24 04:22
Glucose 157 mg/dl (70-99) H 03/10/24 04:22
Vital Signs and I&O:
Vital Signs
Temp Pulse Resp BP Pulse Ox
98.6 F 79 20 124/76 97
03/10/24 04:16 03/10/24 05:45 03/10/24 04:16 03/10/24 04:17 03/10/24 04:17
Vital Signs
Temp Pulse Resp BP Pulse Ox
98.6 F 79 20 124/76 97
03/10/24 04:16 03/10/24 05:45 03/10/24 04:16 03/10/24 04:17 03/10/24 04:17
Physical Exam
Physical Exam
NAD< AOx3
S1, S2, RRR
CTAB, non labored
SNTND bsx4
R fem site c/d/i no HT, soft
[2024-03-10 07:55] VITALS: BP 127/78
[2024-03-10] MEDS: FEMARA 2.5 MG PO (07:57)
[2024-03-10] MEDS: CARDIZEM CD 240 MG PO (07:57)
[2024-03-10] MEDS: ORETIC 25 MG PO (07:58)
[2024-03-10] MEDS: AVAPRO 300 MG PO (07:58)
[2024-03-10] MEDS: XARELTO 20 MG PO (08:00)
--- NOTE | 2024-03-10 09:05 | PTCARENOTE ---
Assumed care of pt from night RN. Pt received awake and alert, Ox3. VSS, CM shows NSR 80's, POX 98% on RA. Right femoral dsg remains CDI with normal CMS throughout limb. Pt denies any pain or discomfort, ambulating frequently in room. For
potential D/C today.
--- NOTE | 2024-03-10 09:23 | W.DS.TRANS ---
DC Summary - Margin Analyst
-
Discharge Instructions:
Discharge Diagnosis/Procedures AFib, s/p ablation
Diet Low Cholesterol
Driving Restrictions No driving for 24 hours
Instructions:
Stand-Alone Forms: DC Instructions- Cath/EP Lab
Changes to Home Medications: No
Discharge Medications:
DC Medications w/original date entered in [employer] / [employer]
hydrochlorothiazide 25 mg tablet 25 mg PO DAILY Blood pressure 05/10/21
irbesartan 300 mg tablet 300 mg PO DAILY Blood pressure 05/10/21
lorazepam 0.5 mg tablet 0.5 mg PO DAILYPRN PRN severe anxiety 05/10/21
letrozole 2.5 mg tablet 2.5 mg PO DAILY Cancer 12/11/21
rivaroxaban 20 mg tablet (Xarelto) 20 mg PO DAILY Blood clot prevention/tx 12/11/21
calcium 600 mg-D3 20 mcg-magnesium 50 li-Qq-mirtgi-frank-boron tablet (Calcium 600-D3 Plus (mag-zinc)) 1 tab PO BID Supplement 01/03/22
diltiazem HCl 240 mg capsule,extended release 24 hr, controlled 240 mg PO DAILY AFIB 07/30/23
ibuprofen 200 mg tablet 600 mg PO DAILYPRN PRN mild pain 07/30/23
Home Medication Changes
Pending Results: No
--- NOTE | 2024-03-10 10:04 | PTCARENOTE ---
All D/C info reviewed with pt, all questions answered. Pt D/C'd home with Uber.
== END 2024-03-10 10:05 | disposition home or self-care (01) ==
LOC: CATH 08:27
PROVIDERS: Nurse Practitioner; ATTENDING PHYSICIAN Internal Medicine Cardiovascular Disease; FAMILY PHYSICIAN Family Medicine; OTHER PHYSICIAN Internal Medicine
DX: I48.0 Paroxysmal atrial fibrillation (principal); I10 Essential (primary) hypertension; I34.0 Nonrheumatic mitral (valve) insufficiency; E66.9 Obesity, unspecified; Z68.37 Body mass index [BMI] 37.0-37.9, adult; Z85.3 Personal history of malignant neoplasm of breast; Z85.828 Personal history of other malignant neoplasm of skin; Z79.01 Long term (current) use of anticoagulants
CPT/HCPCS: C1732; C1894; C1733; C1769; C1730; C1892; C1759; 36415; 80048; 80053; 83735; 85025; 85027; 85347; 85610; 86850; 86900; 86901; 93005; 93656; 93657

== ENCOUNTER → 2024-03-13 07:37 | Outpatient (REF) | payer OTHER, SELFPAY | LOC: RAD 07:37 | PROVIDERS: ATTENDING PHYSICIAN Internal Medicine Critical Care Medicine; FAMILY PHYSICIAN Family Medicine | DX: R91.1 Solitary pulmonary nodule (principal) | CPT/HCPCS: 71250 ==

== ENCOUNTER 2024-07-28 03:49 | Emergency (ER) | payer OTHER, SELFPAY ==
[2024-07-28] VITALS (7 sets, daily range): BP systolic 142–165; BP diastolic 82–108; BMI 39.3
[2024-07-28] MEDS: ZOFRAN ODT (ORALLY DISINTEGRATING) 4 MG PO (04:11)
[2024-07-28 04:20] LABS: % Basophils 0.5 % (0-2); % Eosinophils 1.1 % (0-6); % Immature Granulocytes 0.5 % (0-0.5); % Lymphocytes 8.4 % (20.5-51.1); % Monocytes 5.6 % (1.7-9.3); % Neutrophils 83.9 % (42.2-75.2); Absolute Basophils 0.1 10^3/uL (0-0.2); Absolute Eosinophils 0.1 10^3/uL (0-0.7); Absolute Immature Granulocytes 0.1 10^3/uL (0-0.05); Absolute Lymphocytes 0.8 10^3/uL (1.2-3.4); Absolute Monocytes 0.5 10^3/uL (0.1-0.6); Hematocrit 38.8 % (37.0-47.0); Hemoglobin 13.5 g/dL (12.0-16.0); Mean Corp Hgb Conc. 34.8 g/dL (33.0-37.0); Mean Corpuscular Hgb 35.5 pg (27.0-31.0); Mean Corpuscular Volume 102.1 fL (81.0-99.0); Mean Platelet Volume 9.1 fL (7.4-10.4); Nucleated Red Blood Cells % 0 %; Platelet Count 278 10^3/uL (130-400); Red Cell Dist. Width 14.5 % (11.5-14.5); White Blood Cell Count 9.5 10^3/uL (4.8-10.8)
[2024-07-28 04:21] LABS: Urine Albumin 3+ (Neg - Trace); Urine Bilirubin 2+ (Negative); Urine Character Slightly Cloudy (Clear); Urine Glucose Negative (Negative); Urine Ketone Negative (Negative); Urine Leukocyte Negative (Negative); Urine Nitrite Negative (Negative); Urine Occult Blood 4+ (Negative); Urine Urobilinogen 1+ (Neg - 1+)
[2024-07-28 04:26] LABS: Urine Color Amber
[2024-07-28 04:46] LABS: ALT (SGPT) 15 U/L (0-35); AST (SGOT) 21 U/L (14-36); Albumin 4.2 g/dl (3.5-5.0); Alkaline Phosphatase 194 U/L (38-126); Blood Urea Nitrogen 29 mg/dl (7-17); Calcium 9.3 mg/dl (8.4-10.2); Carbon Dioxide 24 mmol/L (22-30); Chloride 101 mmol/L (98-107); Glucose 154 mg/dl (70-99); Potassium 3.5 mmol/L (3.5-5.1); Sodium 136 mmol/L (135-145); Total Bilirubin 1.4 mg/dl (0.2-1.3); Total Protein 6.8 g/dl (6.3-8.2); eGFR 56.11
[2024-07-28 05:03] LABS: Urine Bacteria Few (Negative); Urine Red Blood Cell >100 /HPF (0-2)
[2024-07-28] MEDS: ZOFRAN 4 MG IV ×2 (05:25→07:13)
[2024-07-28] MEDS: MORPHINE SULFATE 4 MG IV (05:26)
[2024-07-28] MEDS: NSS 1000 IV (05:45)
--- NOTE | 2024-07-28 06:33 | ED.GENMED ---
History of Present Illness
<Cara Alejandro DO - Last Filed: 07/30/24 15:08>
General
Chief Complaint: Flank Pain
Time Seen by Provider: 07/28/24 05:23
History of Present Illness
History of Present Illness:
63-year-old female with history of atrial fibrillation status post ablation on Eliquis presenting to the emergency department for flank pain and hematuria. Patient reports last week she noticed when she was urinating, keisha hematuria. She reports
that she has chronic back pain and had been treating her pain with ibuprofen so was unsure if that exacerbated hematuria. She stopped her Xarelto in 1 to urgent care. She was subsequently started on Macrobid for some UTI. Her symptoms have been
improving, however yesterday again had worsening left flank pain and left-sided abdominal pain with dark-colored urine. She also reports nausea and vomiting. Denies any history of kidney infections. Denies any history of kidney stones. Denies
fever. Denies chest pain or difficulty breathing or additional acute medical complaints
Past History
<Cara Alejandro DO - Last Filed: 07/30/24 15:08>
Past History
ED Past Medical History: Arrthythmia (Paroxysmal atrial fibrillation), Cancer (Breast cancer), HTN, Hypercholesterolemia and Other (History of alcohol abuse and sobriety)
ED Past Surgical History: Gynecological (Right mastectomy. Breast biopsy May 09, 2021)
Social History
Tobacco: Non-smoker
Alcohol: Occasional
Drug: None
Personal: Single
Living: alone
Employment: Employed
Family History
Family History: Other (Noncontributory)
Phy Exam
<Cara Alejandro DO - Last Filed: 07/30/24 15:08>
Physical Exam
Physical Exam:
General: Well-appearing, no clinical signs of dehydration, nontoxic and in no acute distress
HEENT: protecting airway
Neck: appears supple
CV: Normal heart rate, regular rhythm, no evidence of cyanosis
Resp: No accessory muscle use, no increased work of breathing, lungs clear to auscultation bilaterally
Abd: Soft and non-distended, mild tenderness to the left side of the abdomen without rebound or guarding. No CVA tenderness
Extremities: No deformities, no swelling, no erythema
Neuro: alert, no focal neurologic deficit
: deferred
Rectal: deferred
Psych: Normal affect
Skin: Intact
Sepsis
<Cara Alejandro, DO - Last Filed: 07/30/24 15:08>
Sepsis Screening
Sepsis Assessment: Sepsis Ruled Out
Sepsis Screen
Sepsis Screen: Sepsis Ruled Out
Date: 07/30/24
Time: 15:08
Course
<Cara Alejandro, DO - Last Filed: 07/30/24 15:08>
Orders/Labs/Results
Orders:
Orders
07/28/24 04:06
Complete Blood Count/With Diff Urgent
Urinalysis Urgent
Date Specimen was Collected: 07/28/24
Time Specimen was Collected: 03:57
Urine Microscopic Urgent
Date Specimen was Collected: 07/28/24
Time Specimen was Collected: 03:57
07/28/24 04:07
CMP [Comprehensive Metabolic Panel] Urgent
07/28/24 04:09
Ondansetron Orally Disint [Zofran Odt (Orally Disintegrating)] 4 mg .ROUTE .[facility]-MED ONE
07/28/24 04:10
Ondansetron Orally Disint [Zofran Odt (Orally Disintegrating)] 4 mg PO NOW STA
07/28/24 05:23
Ondansetron Injectable [Zofran] 4 mg .ROUTE .[facility]-MED ONE
07/28/24 05:24
Morphine Sulfate 4 mg .ROUTE .[facility]-MED ONE
07/28/24 05:25
Ondansetron Injectable [Zofran] 4 mg IV NOW STA
07/28/24 05:26
Morphine Sulfate 4 mg IV NOW STA
07/28/24 05:30
CT Abd/pelvis W Iv Cont Urgent
Comment:
Reason For Exam: L-flank pain, hematuria
0.9% Sodium Chloride 1000 ml [Nss] 1,000 ml IV BOLUS
07/28/24 05:51
Urine Culture Urgent
BRYAN Source: Urine
Specimen Description:
Obtained by: Clean Catch/Mid Stream
Date Specimen was Collected: 07/28/24
Time Specimen was Collected: 05:36
07/28/24 06:32
HYDROmorphone [Dilaudid] 1 mg IV NOW STA
Ondansetron Injectable [Zofran] 4 mg IV NOW STA
Abnormal Lab Results
07/28/24 07/28/24
04:06 04:07
RBC 3.80 L 10^6/uL
(4.20-5.40)
MCV 102.1 H fL
(81.0-99.0)
MCH 35.5 H pg
(27.0-31.0)
Abs Immat Gran (auto) 0.1 H 10^3/uL
(0-0.05)
Absolute Neuts (auto) 8.0 H 10^3/uL
(1.4-6.5)
Absolute Lymphs (auto) 0.8 L 10^3/uL
(1.2-3.4)
Neutrophils % 83.9 H %
(42.2-75.2)
Lymphocytes % 8.4 L %
(20.5-51.1)
BUN 29 H mg/dl
(7-17)
Creatinine 1.1 H mg/dL
(0.6-1.0)
Glucose 154 H mg/dl
(70-99)
Total Bilirubin 1.4 H mg/dl
(0.2-1.3)
Alkaline Phosphatase 194 H U/L
(38-126)
Urine Occult Blood 4+ A
(Negative)
Urine Bilirubin 2+ A
(Negative)
Urine RBC >100 A /HPF
(0-2)
Urine Bacteria Few A
(Negative)
Urine Albumin 3+ A
(Neg - Trace)
07/28/24 04:06
07/28/24 04:07
Vital Signs
Initial and Last Documented VS:
Initial Vital Signs
Temp Pulse Resp BP Pulse Ox
98.7 F 104 24 165/108 98
07/28/24 03:51 07/28/24 03:51 07/28/24 03:51 07/28/24 03:51 07/28/24 03:51
Last Documented Vital Signs
Temp Pulse Resp BP Pulse Ox
98.7 F 89 16 152/93 94
07/28/24 03:51 07/28/24 10:30 07/28/24 10:30 07/28/24 10:00 07/28/24 10:30
<Chalo Ochoa, DO - Last Filed: 07/28/24 13:36>
Orders/Labs/Results
Orders:
Orders
07/28/24 04:06
Complete Blood Count/With Diff Urgent
Urinalysis Urgent
Date Specimen was Collected: 07/28/24
Time Specimen was Collected: 03:57
Urine Microscopic Urgent
Date Specimen was Collected: 07/28/24
Time Specimen was Collected: 03:57
07/28/24 04:07
CMP [Comprehensive Metabolic Panel] Urgent
07/28/24 04:09
Ondansetron Orally Disint [Zofran Odt (Orally Disintegrating)] 4 mg .ROUTE .[facility]-MED ONE
07/28/24 04:10
Ondansetron Orally Disint [Zofran Odt (Orally Disintegrating)] 4 mg PO NOW STA
07/28/24 05:23
Ondansetron Injectable [Zofran] 4 mg .ROUTE .STK-MED ONE
07/28/24 05:24
Morphine Sulfate 4 mg .ROUTE .STK-MED ONE
07/28/24 05:25
Ondansetron Injectable [Zofran] 4 mg IV NOW STA
07/28/24 05:26
Morphine Sulfate 4 mg IV NOW STA
07/28/24 05:30
CT Abd/pelvis W Iv Cont Urgent
Comment:
Reason For Exam: L-flank pain, hematuria
0.9% Sodium Chloride 1000 ml [Nss] 1,000 ml IV BOLUS
07/28/24 05:51
Urine Culture Urgent
BRYAN Source: Urine
Specimen Description:
Obtained by: Clean Catch/Mid Stream
Date Specimen was Collected: 07/28/24
Time Specimen was Collected: 05:36
07/28/24 06:32
HYDROmorphone [Dilaudid] 1 mg IV NOW STA
Ondansetron Injectable [Zofran] 4 mg IV NOW STA
Abnormal Lab Results
07/28/24 07/28/24
04:06 04:07
RBC 3.80 L 10^6/uL
(4.20-5.40)
MCV 102.1 H fL
(81.0-99.0)
MCH 35.5 H pg
(27.0-31.0)
Abs Immat Gran (auto) 0.1 H 10^3/uL
(0-0.05)
Absolute Neuts (auto) 8.0 H 10^3/uL
(1.4-6.5)
Absolute Lymphs (auto) 0.8 L 10^3/uL
(1.2-3.4)
Neutrophils % 83.9 H %
(42.2-75.2)
Lymphocytes % 8.4 L %
(20.5-51.1)
BUN 29 H mg/dl
(7-17)
Creatinine 1.1 H mg/dL
(0.6-1.0)
Glucose 154 H mg/dl
(70-99)
Total Bilirubin 1.4 H mg/dl
(0.2-1.3)
Alkaline Phosphatase 194 H U/L
(38-126)
Urine Occult Blood 4+ A
(Negative)
Urine Bilirubin 2+ A
(Negative)
Urine RBC >100 A /HPF
(0-2)
Urine Bacteria Few A
(Negative)
Urine Albumin 3+ A
(Neg - Trace)
07/28/24 04:06
07/28/24 04:07
Vital Signs
Initial and Last Documented VS:
Initial Vital Signs
Temp Pulse Resp BP Pulse Ox
98.7 F 104 24 165/108 98
07/28/24 03:51 07/28/24 03:51 07/28/24 03:51 07/28/24 03:51 07/28/24 03:51
Last Documented Vital Signs
Temp Pulse Resp BP Pulse Ox
98.7 F 89 16 152/93 94
07/28/24 03:51 07/28/24 10:30 07/28/24 10:30 07/28/24 10:00 07/28/24 10:30
<Cara Alejandro, DO - Last Filed: 07/30/24 15:08>
MDM/Problems Addressed
MDM/Problems Addressed:
63-year-old female with history of atrial fibrillation on Xarelto s/p ablation presenting for left-sided abdominal pain and hematuria. Vital signs are significant for hypertension.
On exam, patient in no acute distress, however appears uncomfortable secondary to pain. Urine at bedside, dark in color. Symptoms appear consistent with urinary tract infection, possibly ascending infection versus pyelonephritis versus
nephrolithiasis. Lower suspicion for systemic infection, nontoxic, afebrile. Plan for laboratory analysis, urinalysis, CT imaging. Patient administered morphine and Zofran for symptoms.
06:50 -CT shows a 2 mm obstructing stone, consistent with patient's symptoms. Patient afebrile, no leukocytosis and no signs of UTI on urinalysis. Without present concern for infected stone. However, patient is still very uncomfortable. Redosed
with pain medication with Dilaudid. In discussion with patient, offered admission for pain control. She would like to see how she feels after additional dose of pain medication with potential plan for discharge home and outpatient urologic
follow-up
<Cara Alejandro DO - Last Filed: 07/30/24 15:08>
*Critical Care Note
Total Time (30-74mins, 75-104mins- exclusive of procedures): Not Applicable
<Chalo Ochoa, DO - Last Filed: 07/28/24 13:36>
Update Note
Update Note:
I evaluated the patient at bedside. White count normal, creatinine 1.1, urinalysis shows 4+ blood, no definite sign of infection. CT does show a distal 2 mm left ureteral stone. Will give send prescription for Percocet, Zofran, Compazine 'as
backup' at patient request, and Flomax.
ED Attending Note
<Cara Alejandro DO - Last Filed: 07/30/24 15:08>
-
Portions of this chart may have been created with voice recognition software.� Occasional wrong word or��sound alike� substitutions may have occurred due to the inherent limitations of voice recognition software.
Discharge Plan
Departure
Patient Disposition: Home (Routine Discharge)
Date of Disposition: 07/28/24
Time of Disposition: 09:37
Patient with high blood pressure during this ER visit?: No
Condition: Good
Discharge Problem:
Left nephrolithiasis, Hematuria
Instructions: Kidney Stones (DC), How to Strain Your Urine
Prescriptions:
New
ondansetron 4 mg Tablet,Disintegrating
4 mg PO TIDPRN PRN (Reason: nausea/vomiting) Qty: 6 0RF
tamsulosin [Flomax] 0.4 mg capsule
0.4 mg PO DAILY 5 Days Qty: 5 0RF
oxycodone-acetaminophen [Percocet] 5-325 mg tablet
1 - 2 tab PO Q6HPRN PRN (Reason: pain) Qty: 14 0RF
ondansetron HCl 4 mg tablet
4 mg PO Q6H PRN (Reason: nausea and vomiting) Qty: 14 0RF
prochlorperazine [Compazine] 25 mg suppository
25 mg SC BID PRN (Reason: nausea) Qty: 12 0RF
tamsulosin [Flomax] 0.4 mg capsule
0.4 mg PO DAILY Qty: 14 0RF
No Action
lorazepam 0.5 MG tablet
0.5 mg PO DAILYPRN PRN (Reason: severe anxiety)
hydrochlorothiazide 25 MG tablet
25 mg PO DAILY
irbesartan 300 MG tablet
300 mg PO DAILY
letrozole 2.5 mg Tablet
2.5 mg PO DAILY
Xarelto 20 mg Tablet
20 mg PO DAILY
Ca-D3-mag yl-acrs-mza-adelaide-bor [Calcium 600-D3 Plus (mag-zinc)] 600 mg calcium- 20 mcg-50 mg Tablet
1 tab PO BID
diltiazem HCl 240 mg Capsule,Ext.Rel 24h Degradable
240 mg PO DAILY
ibuprofen 200 mg Tablet
600 mg PO DAILYPRN PRN (Reason: mild pain)
Referrals:
Allyssa Thomason MD [Family Provider] -
Daniel Lindsey MD [Active] - (kidney stone)
Activity Restrictions/Additional Instructions:
You were seen in the emergency department for left-sided abdominal pain
You were found to have a 2 mm kidney stone which will likely pass on its own given its size. This is in the distal part of your left ureter. Please continue to take pain medication as needed for discomfort. Please follow-up with a urologist.
Return to the hospital immediately with any increasing pain or development of fever, or persistent vomiting with inability to tolerate food or liquid by mouth
Please follow-up closely with your primary care physician.
Return to the emergency department for any worsening of your symptoms, or any development of chest pain, difficulty breathing, weakness, headache or confusion, fever greater than 100.4, or any additional symptoms that are concerning to you.
Thank you for choosing [facility].
Interventions
Interventions:
*Risk Screen - Suicide Last Done: 07/28/24 03:51
*General Assessment Last Done: 07/28/24 05:05
*Neglect/Abuse Screening Last Done: 07/28/24 03:51
ED- Fall Risk Assessment Last Done: 07/28/24 05:05
*ED COVID-19 Vaccine History Last Done: 07/28/24 05:05
*Nursing Disposition Last Done: 07/28/24 10:45
OE-Nrvvpm-Cixesphckq Assessment Last Done: 07/28/24 05:05
ED-Female Genitourinary Assessment Last Done: 07/28/24 05:05
Discharge Date and Time
Discharge Date/Time: 07/28/24 10:45
Print Language: CHINESE
[2024-07-28] MEDS: DILAUDID 1 MG IV (07:13)
== END 2024-07-28 10:45 | disposition home or self-care (01) ==
LOC: EMR 03:49
PROVIDERS: EMERGENCY PHYSICIAN Student in an Organized Health Care Education/Training Program; FAMILY PHYSICIAN Family Medicine
DX: N13.6 Pyonephrosis (principal); R31.9 Hematuria, unspecified; Z79.01 Long term (current) use of anticoagulants; I48.0 Paroxysmal atrial fibrillation
CPT/HCPCS: 99285; 96374; 96375 ×2; 96361 ×2; 96376; 74177; 80053; 81003; 81015; 85025; 87086; Q9967

== ENCOUNTER 2024-07-31 15:54 | Inpatient (IN) | payer OTHER, SELFPAY ==
[2024-07-31 12:13] LABS: % Basophils 0.7 % (0-2); % Eosinophils 1.2 % (0-6); % Immature Granulocytes 0.5 % (0-0.5); % Lymphocytes 9.2 % (20.5-51.1); % Monocytes 6.1 % (1.7-9.3); % Neutrophils 82.3 % (42.2-75.2); Absolute Basophils 0.1 10^3/uL (0-0.2); Absolute Eosinophils 0.1 10^3/uL (0-0.7); Absolute Lymphocytes 0.7 10^3/uL (1.2-3.4); Absolute Monocytes 0.5 10^3/uL (0.1-0.6); Absolute Neutrophils 6.2 10^3/uL (1.4-6.5); Hematocrit 37.7 % (37.0-47.0); Mean Corp Hgb Conc. 34.5 g/dL (33.0-37.0); Mean Corpuscular Hgb 35.4 pg (27.0-31.0); Mean Corpuscular Volume 102.7 fL (81.0-99.0); Mean Platelet Volume 8.9 fL (7.4-10.4); Nucleated Red Blood Cells % 0 %; Platelet Count 254 10^3/uL (130-400); Red Blood Cell Count 3.67 10^6/uL (4.20-5.40); Red Cell Dist. Width 14.2 % (11.5-14.5); White Blood Cell Count 7.6 10^3/uL (4.8-10.8)
[2024-07-31 12:18] LABS: Urine Albumin 2+ (Neg - Trace); Urine Bilirubin Negative (Negative); Urine Character Clear (Clear); Urine Color Yellow; Urine Glucose Negative (Negative); Urine Ketone Negative (Negative); Urine Leukocyte 2+ (Negative); Urine Nitrite Negative (Negative); Urine Occult Blood 4+ (Negative); Urine Urobilinogen Negative (Neg - 1+)
[2024-07-31 12:28] LABS: ALT (SGPT) 16 U/L (0-35); AST (SGOT) 27 U/L (14-36); Alkaline Phosphatase 192 U/L (38-126); Blood Urea Nitrogen 29 mg/dl (7-17); Calcium 8.9 mg/dl (8.4-10.2); Carbon Dioxide 26 mmol/L (22-30); Chloride 96 mmol/L (98-107); Glucose 127 mg/dl (70-99); Potassium 3.9 mmol/L (3.5-5.1); Sodium 132 mmol/L (135-145); Total Bilirubin 1.5 mg/dl (0.2-1.3); Total Protein 6.6 g/dl (6.3-8.2); eGFR 29.12
[2024-07-31 13:24] LABS: Urine Mucus Few; Urine Squamous Cell >30 /LPF (Few)
[2024-07-31 13:27] LABS: Urine Amorphous Seen; Urine Red Blood Cell >100 /HPF (0-2)
[2024-07-31 13:28] LABS: Urine Bacteria Moderate (Negative)
[2024-07-31 14:15] VITALS: BP 119/70
--- NOTE | 2024-07-31 15:15 | ED.GENMED ---
History of Present Illness
General
Chief Complaint: Flank Pain
Source: patient
Time Seen by Provider: 07/31/24 15:03
History of Present Illness
History of Present Illness:
63-year-old female with past medical history of atrial fibrillation, previous breast cancer presenting back to the emergency department after being seen this past Saturday and diagnosed with a left ureteral stone, continues with worsening pain, nausea
and vomiting and intermittent hematuria. Patient has attempted Zofran and pain medications at home but without any relief. She denies any fevers, chills, rigors. No other symptoms presently.
Past History
Past History
ED Past Medical History: Arrthythmia (Paroxysmal atrial fibrillation), Cancer (Breast cancer), HTN, Hypercholesterolemia and Other (History of alcohol abuse and sobriety)
ED Past Surgical History: Gynecological (Right mastectomy. Breast biopsy May 09, 2021) and Other
Social History
Tobacco: Non-smoker
Alcohol: Occasional
Drug: None
Personal: Single
Living: alone
Employment: Employed
Family History
Family History: Other (Noncontributory)
Review of Systems
Review of Systems
All Other Systems: ROS reviewed and negative except as documented in HPI and ROS
Phy Exam
Physical Exam
Physical Exam:
GENERAL: Alert , in no apparent distress
EYE: conjunctiva clear
NECK: Supple, no significant adenopathy.
ENT: o/p clr, mmm.
CARDIAC: Regular rate and rhythm
LUNGS: Clear breath sounds bilaterally, no acute respiratory distress, no wheezes/rales/rhonchi
ABDOMEN: Soft, mild left CVA tenderness
NEUROLOGICAL: Alert and oriented
SKIN: Warm and dry, skin intact.
MUSCULOSKELETAL: well perfused.
PSYCH: Normal and appropriate interaction.
Scores
Heart Failure Risk
Heart Failure Risk Score: Not Applicable
Heart Score for Chest Pain Patients
STEMI patient?: Not applicable
Withdrawal Assessment of Alcohol
Withdrawal Assessment Completed?: Not applicable
Course
Orders/Labs/Results
Orders:
Orders
07/31/24 12:06
Complete Blood Count/With Diff Urgent
Comprehensive Metabolic Panel Urgent
Urinalysis Reflex To Culture Urgent
Date Specimen was Collected: 07/31/24
Time Specimen was Collected: 11:55
Urine Microscopic Reflex Cult Urgent
Urine Culture Urgent
BRYAN Source: U
Specimen Description:
Date Specimen was Collected: 07/31/24
Time Specimen was Collected: 11:55
07/31/24 15:12
HYDROmorphone [Dilaudid] 1 mg IV NOW STA
Ondansetron Injectable [Zofran] 4 mg IV NOW STA
CR Abdomen - 1 View Urgent
Comment:
Reason For Exam: known left ureteral stone, worsening pain
07/31/24 15:40
Admit/Transfer Patient As Directed
Co-Sign Provider:
Level of Care: Inpatient admission
Assign to:: Medical/Surgical
Physician / Group: sonia
Diagnosis: distal ureteral stone
Reason for Hospitalization: distal ureteral stone
Expected length of stay greater than two midnights?: Yes
ELOS- Estimated Length of Stay in days: 2
I certify the patient meets the requirements for IP care: Yes
Code Status As Directed
Resuscitation Status: Full Code
PRN Pain Medication Management As Directed
May give lesser potent ordered pain med per pt: Yes
preference::
Protocol:: Medication orders for pain may be administered in a
manner that supports deferring to patient preference
when the pt is:
- Requesting an ordered lesser potent pain medication.
Least to most potent pain medications are defined
as: acetaminophen < NSAID < tramadol < opioids
(morphine, oxycodone, hydromorphone).
- Requesting a lesser dose of the same medication IF
ORDERED.
- Requesting a less intrusive route of administration
if both routes are prescribed by the provider (PO <
IV).
Abnormal Lab Results
07/31/24
12:06
RBC 3.67 L 10^6/uL
(4.20-5.40)
MCV 102.7 H fL
(81.0-99.0)
MCH 35.4 H pg
(27.0-31.0)
Absolute Lymphs (auto) 0.7 L 10^3/uL
(1.2-3.4)
Neutrophils % 82.3 H %
(42.2-75.2)
Lymphocytes % 9.2 L %
(20.5-51.1)
Sodium 132 L mmol/L
(135-145)
Chloride 96 L mmol/L
(98-107)
BUN 29 H mg/dl
(7-17)
Creatinine 1.9 H mg/dL
(0.6-1.0)
Glucose 127 H mg/dl
(70-99)
Total Bilirubin 1.5 H mg/dl
(0.2-1.3)
Alkaline Phosphatase 192 H U/L
(38-126)
Ur Occult Blood Reflex 4+ A
(Negative)
Leukocyte Esterase Rfl 2+ A
(Negative)
Urine RBC >100 A /HPF
(0-2)
Urine Bacteria (Reflex) Moderate A
(Negative)
Urine Albumin (Reflex) 2+ A
(Neg - Trace)
07/31/24 12:06
07/31/24 12:06
Vital Signs
Initial and Last Documented VS:
Initial Vital Signs
Temp Pulse Resp Pulse Ox
98.7 F 108 18 96
07/31/24 11:52 07/31/24 11:52 07/31/24 11:52 07/31/24 11:52
Last Documented Vital Signs
Temp Pulse Resp BP Pulse Ox
98.7 F 105 16 136/83 98
07/31/24 11:52 07/31/24 15:52 07/31/24 15:52 07/31/24 15:52 07/31/24 15:52
MDM/Problems Addressed
Differential Diagnosis Includes:
Continued renal/ureteral colic, urinary tract infection/pyelonephritis, acute kidney injury, dehydration
MDM/Problems Addressed:
63-year-old female presenting back to the emergency department after being seen earlier this week and diagnosed with an obstructive 4 mm distal left ureteral stone due to continued flank pain, nausea and vomiting and generally feeling unwell. Labs
initiated on arrival show no leukocytosis however patient does have worsening acute kidney injury with prerenal azotemia and a creatinine of 1.9, GFR of 29. Urinalysis without signs of infection. Given patient's continued/worsening symptoms and
worsening renal function patient will likely need admission with intervention done by urology. Will discuss with urology with ultimate plan for admission. Patient does note she has not taken her Xarelto over the last 4 days.
*Pulse Oximetry
Patient hypoxic: no
*Critical Care Note
Total Time (30-74mins, 75-104mins- exclusive of procedures): Not Applicable
Data Reviewed
Review of Other/Old Records Reveals: Labs, Records and Radiology Studies
Source: patient and records
Patient Management
Discussion with other providers: Hospitalist and Public Health Administrator
Escalation/DeEscalation of care consider admission/obs:
Urology team notified who will consult on the patient with plans to take to the OR tomorrow morning. Hospitalist team aware and accepts for continued evaluation and treatment.
ED Attending Note
-
Portions of this chart may have been created with voice recognition software.� Occasional wrong word or��sound alike� substitutions may have occurred due to the inherent limitations of voice recognition software.
Discharge Plan
Departure
Patient Disposition: Admit
Date of Disposition: 07/31/24
Time of Disposition: 15:16
Presentation/result/management discussed w/ accepting MD/DO: Hospitalist
Discharge Problem:
Calculus of left ureter, JOSE (acute kidney injury)
Interventions
Interventions:
*Risk Screen - Suicide Last Done: 07/31/24 11:52
*General Assessment Last Done: 07/31/24 11:52
*Neglect/Abuse Screening Last Done: 07/31/24 11:52
ED- Fall Risk Assessment Last Done: 07/31/24 15:29
*ED COVID-19 Vaccine History Last Done: 07/31/24 11:52
GU-Ojtmly-Euhiqxgqgj Assessment Last Done: 07/31/24 15:05
ED-Female Genitourinary Assessment Last Done: 07/31/24 15:05
[2024-07-31] MEDS: DILAUDID 1 MG IV (15:23)
[2024-07-31] MEDS: ZOFRAN 4 MG IV ×2 (15:24→21:09)
--- NOTE | 2024-07-31 15:40 | EDRN ---
Dr. Rdz in to see pt at this time.
--- NOTE | 2024-07-31 15:47 | HPS.HSE ---
Family Physician
-
Family Physician: Allyssa Thomason MD
Chief Complaint
-
left flank pain
History of Present Illness
63-year-old female past medical history of left ureteral stone, paroxysmal atrial fibrillation status post PVI and pulsed field ablation, nonrheumatic mitral regurgitation, hypertension, obstructive sleep apnea CPAP, breast cancer status post
mastectomy 2020, osteopenia, lung nodule, presenting back to the emergency room with worsening left flank pain, nausea and vomiting. Symptoms originally started 8 days ago. Denies any fevers or chills. Denies diarrhea. Has some pressure in the
bladder area.
She came to the emergency room 3 days ago for the same symptoms but with hematuria at that time. She had been having chronic back pain and had been taking ibuprofen. No prior history of kidney stones or infections. She was diagnosed with left
ureteral stone and discharged.
She drinks alcohol occasionally. Denies smoking.
Medical History
Past Medical History
Past Medical History: Reports Other ( left ureteral stone, paroxysmal atrial fibrillation status post PVI and pulsed field ablation, nonrheumatic mitral regurgitation, hypertension, obstructive sleep apnea CPAP, breast cancer status post mastectomy
2020, osteopenia, lung nodule)
Past Surgical History: Reports Other (Gynecological (Right mastectomy. Breast biopsy May 09, 2021) and Other)
Social History
Tobacco: Non-smoker
Alcohol: None
Drug: None
Family History
Family History: Not pertinent
Allergies / Home Medications
Allergies reflects when Allergies were last updated in [facility].
Home Medications with original date entered in [facility]
Allergy/Medication List:
Allergies
Allergy/AdvReac Type Severity Reaction Status Date / Time
minocycline Allergy Rash Verified 07/28/24 03:54
lisinopril AdvReac cough Verified 07/28/24 03:54
Home Medications
hydrochlorothiazide 25 mg tablet 25 mg PO DAILY Blood pressure 05/10/21
irbesartan 300 mg tablet 300 mg PO DAILY Blood pressure 05/10/21
lorazepam 0.5 mg tablet 0.5 mg PO DAILYPRN PRN severe anxiety 05/10/21
letrozole 2.5 mg tablet 2.5 mg PO DAILY Cancer 12/11/21
rivaroxaban 20 mg tablet (Xarelto) 20 mg PO DAILY Blood clot prevention/tx 12/11/21
calcium 600 mg-D3 20 mcg-magnesium 50 ic-Es-xvkwcq-frank-boron tablet (Calcium 600-D3 Plus (mag-zinc)) 1 tab PO BID Supplement 01/03/22
diltiazem HCl 240 mg capsule,extended release 24 hr, controlled 240 mg PO DAILY AFIB 07/30/23
ibuprofen 200 mg tablet 600 mg PO DAILYPRN PRN mild pain 07/30/23
ondansetron 4 mg disintegrating tablet 4 mg PO TIDPRN PRN nausea/vomiting #6 tabs 07/28/24
ondansetron HCl 4 mg tablet 4 mg PO Q6H PRN nausea and vomiting #14 tabs 07/28/24
oxycodone-acetaminophen 5 mg-325 mg tablet (Percocet) 1 - 2 tab PO Q6HPRN PRN pain #14 tabs 07/28/24
prochlorperazine 25 mg rectal suppository (Compazine) 25 mg MA BID PRN nausea #12 ea 07/28/24
tamsulosin 0.4 mg capsule (Flomax) 0.4 mg PO DAILY #14 caps 07/28/24
tamsulosin 0.4 mg capsule (Flomax) 0.4 mg PO DAILY 5 days #5 caps 07/28/24
Review of Systems
-
History Source: Patient
A 12 point ROS was completed and negative except as noted: Yes
Constitutional: Reports No Symptoms
EENT: Reports No Symptoms
Respiratory: Reports No Symptoms
Cardiac: Reports No Symptoms
Abdomen/GI: Reports See HPI
: Reports No Symptoms
Musculoskeletal: Reports No Symptoms
Skin: Reports No Symptoms
Neurological: Reports No Symptoms
Endocrine: Reports No Symptoms
Hematologic/Lymphatic: Reports No Symptoms
Psych: Reports No Symptoms
Physical Exam
Vital Signs
Vital Signs
Temp Pulse Resp BP Pulse Ox
98.7 F 96 16 119/70 99
07/31/24 11:52 07/31/24 14:15 07/31/24 14:15 07/31/24 14:15 07/31/24 14:15
Physical Exam
General: Well Developed, Well Nourished and No Apparent Distress
HEENT: NormoCephalic, Moist mucous membranes and Atraumatic
Respiratory: Clear
Cardiac: S1/S2 and Regular Rhythm; No Murmur or Rub
GI: Soft, Non Tender, Non Distended and Normal Bowel Sounds; No Organomegaly
Rectal: Deferred by Provider
Genito-urinary: Costovertebral angle tend (left )
Musculoskeletal: No Clubbing, No Cyanosis and No Edema
Skin: No Rash
Neuro: Nonfocal/grossly intact
Laboratory Results
-
07/31/24 12:06
07/31/24 12:06
Laboratory Results
Total Bilirubin 1.5 mg/dl (0.2-1.3) H 07/31/24 12:06
AST 27 U/L (14-36) 07/31/24 12:06
ALT 16 U/L (0-35) 07/31/24 12:06
Alkaline Phosphatase 192 U/L (38-126) H 07/31/24 12:06
Data Reviewed
-
Lab Data: Labs Reviewed by me
Old Records: Reviewed
Impression/Plan
-
IMPRESSION:
PLAN:
# Left distal ureteral stone with mild left hydronephrosis
-N.p.o
-IV fluids
-Hold off Xarelto, not taken 4 days
-Urology planning on OR tomorrow
# JOSE secondary to Ibuprofen/ARB/prerenal
-IV fluids
-Hold hydrochlorothiazide, irbesartan ibuprofen
Paroxysmal atrial fibrillation status post PVI/pulsed field ablation
-Continue diltiazem
-Hold Xarelto
Nonrheumatic mitral regurgitation
Essential hypertension
-Hold hydrochlorothiazide
Obstructive sleep apnea
-On CPAP
Breast cancer status post mastectomy in 2020
-Continue letrozole
Osteopenia
History of lung nodule
Anxiety/depression
-Continue Ativan
Full code
DVT prophylaxis�SCDs
N.p.o. past midnight
[2024-07-31 15:52] VITALS: BP 136/83
--- NOTE | 2024-07-31 16:29 | EDRN ---
Dr. Carver in room w/pt at this time.
--- NOTE | 2024-07-31 16:52 | CON.MD ---
Consultation - Medical
-
see dictated note
pt with no prior gu hx
presented to Er with hematuria and left flank pain- dx'd with left ureteral stone
attempted outpt TOP- but pain and hematuria have recurred
cr also up to 1.9
pt has held xarelto with cards permission
plan
admit
ivf
OR tomorrow if no stone passage
risks, benefits, alternatives and disabilities reviewed
[2024-07-31 16:54] VITALS: BP 112/70
[2024-07-31 18:08] VITALS: BP 112/77
[2024-07-31] MEDS: NSS 1000 IV (18:28)
[2024-07-31] MEDS: DILAUDID 0.5 MG IV (21:07)
[2024-07-31] MEDS: OSCAL 500 + D 500 MG PO (21:07)
[2024-07-31 23:34] VITALS: BP 75/47
[2024-08-01] VITALS (7 sets, daily range): BP systolic 83–134; BP diastolic 50–76
[2024-08-01] MEDS: DILAUDID 0.5 MG IV (02:28)
[2024-08-01] MEDS: ZOFRAN 4 MG IV (03:10)
[2024-08-01] MEDS: NSS 1000 IV (05:17)
--- NOTE | 2024-08-01 07:02 | W.PN.UPDATE ---
Update Note
Progress Note Update
pt feels ok
no stone passage
for OR this am
again risks,benefits,alternatives and disabilities reviewed
[2024-08-01 07:44] LABS: % Basophils 0.8 % (0-2); % Eosinophils 3.2 % (0-6); % Immature Granulocytes 0.3 % (0-0.5); % Lymphocytes 17.3 % (20.5-51.1); % Neutrophils 67.4 % (42.2-75.2); Absolute Basophils 0.1 10^3/uL (0-0.2); Absolute Eosinophils 0.2 10^3/uL (0-0.7); Absolute Monocytes 0.7 10^3/uL (0.1-0.6); Hematocrit 32.2 % (37.0-47.0); Hemoglobin 11.1 g/dL (12.0-16.0); Mean Corp Hgb Conc. 34.5 g/dL (33.0-37.0); Mean Corpuscular Hgb 36.2 pg (27.0-31.0); Mean Corpuscular Volume 104.9 fL (81.0-99.0); Mean Platelet Volume 9.4 fL (7.4-10.4); Nucleated Red Blood Cells % 0 %; Platelet Count 235 10^3/uL (130-400); Red Blood Cell Count 3.07 10^6/uL (4.20-5.40); Red Cell Dist. Width 14.2 % (11.5-14.5)
[2024-08-01 08:10] LABS: ALT (SGPT) 14 U/L (0-35); AST (SGOT) 22 U/L (14-36); Albumin 3.3 g/dl (3.5-5.0); Alkaline Phosphatase 146 U/L (38-126); Blood Urea Nitrogen 29 mg/dl (7-17); Calcium 8.9 mg/dl (8.4-10.2); Carbon Dioxide 28 mmol/L (22-30); Chloride 99 mmol/L (98-107); Estimated Creatinine Clearance 53 ml/min; Glucose 101 mg/dl (70-99); Potassium 3.2 mmol/L (3.5-5.1); Sodium 133 mmol/L (135-145); Total Bilirubin 1.2 mg/dl (0.2-1.3); Total Protein 5.6 g/dl (6.3-8.2); eGFR 38.67
--- NOTE | 2024-08-01 08:45 | W.IMMPOSTOP ---
Surgical Immed Post Op Note
-
Primary Surgeon:
merline
Assisting Surgeon:
none
Pre-op Diagnosis:
left ureteral stone
Post-op Diagnosis:
same
Procedure Performed:
left ureteroscopy/laser litho and stent
Anesthesia Type:
gen
Specimen / Cultures:
stone
Estimated Blood Loss:
2cc
Complications:
none
Operative Findings:
tight ureter
stone identified- fragemented and extracted- stent placed
cr already down to 1.5
no evid of infx
pt stable for discharge after lunch with outpt f/u for stent removal
may resume xarelto tomorrow
[2024-08-01] MEDS: FLOMAX 0.4 MG PO (10:01)
[2024-08-01] MEDS: FEMARA 2.5 MG PO (10:01)
[2024-08-01] MEDS: ULTRAM 25 MG PO (10:01)
[2024-08-01] MEDS: OSCAL 500 + D 500 MG PO (10:01)
[2024-08-01] MEDS: CARDIZEM CD 240 MG PO (10:02)
--- NOTE | 2024-08-01 10:04 | CM ---
CM following re: discharge planning.
Reviewed pt's chart, met with pt.
Pt is a 63 year old female admitted with primary dx of left ureteral stone.
Pt reports she lives alone in a condo, 1st floor, 1 step to enter, has supportive brother and friends. Pt described herself as independent in all areas [employer], drives, works.
Discharge order noted. Pt is aware, expressed her agreement with discharge and pt stated her brother will transport home.
PVP: Allyssa Thomason
Pharmacy: [facility].
D/C plan: home no needs. Brother to transport.
--- NOTE | 2024-08-01 12:56 | W.PN.HOSP.TC ---
Today's Communication/Plan
-
OK to send home. Discharged by Urology service.
Assessment / Plan
Assessment / Plan
63-year-old woman with past medical history of
left ureteral stone,
paroxysmal atrial fibrillation status post PVI and pulsed field ablation,
nonrheumatic mitral regurgitation,
hypertension,
obstructive sleep apnea CPAP,
breast cancer status post mastectomy 2020,
osteopenia,
lung nodule,
presentied back to the emergency room with worsening left flank pain, nausea and vomiting. Symptoms originally started 8 days ago. Denies any fevers or chills. Denies diarrhea. Has some pressure in the bladder area. 3 days ago she came to ED
for the same symptoms but with hematuria at that time. She was diagnosed with left ureteral stone and discharged.
PLAN:
1. Left distal ureteral stone with mild left hydronephrosis
had lithotripsy today
Discharged by Urology service
2. JOSE secondary to Ibuprofen/ARB/prerenal
-improved after IV fluids
-continue to Hold hydrochlorothiazide, irbesartan ibuprofen
-follow up with PCP to document full resolution
3. Paroxysmal atrial fibrillation status post PVI/pulsed field ablation
-Continue diltiazem
-Hold Xarelto
4. Other issues:
Nonrheumatic mitral regurgitation
Essential hypertension
-Hold hydrochlorothiazide
Obstructive sleep apnea
-continue On CPAP
Breast cancer status post mastectomy in 2020
-Continue letrozole
Osteopenia
History of lung nodule
Anxiety/depression
-Continue Ativan
Full code
DVT prophylaxis�SCDs
Anticipated Discharge: Today
Subjective/Interval History
-
Date of Service: August 01, 2024
feels well after lithotripsy. Patient discharged by urology service.
Objective Data
-
Labs:
Laboratory Results
08/01/24
05:59
WBC 6.0
Hgb 11.1 L
Hct 32.2 L
Plt Count 235
Sodium 133 L
Potassium 3.2 L
Chloride 99
Carbon Dioxide 28
BUN 29 H
Creatinine 1.5 H
Glucose 101 H
Calcium 8.9
Total Bilirubin 1.2
AST 22
ALT 14
Alkaline Phosphatase 146 H
Vital Signs:
Vital Signs
Temp Pulse Resp BP Pulse Ox
98.3 F 87 16 134/75 99
08/01/24 08:43 08/01/24 09:57 08/01/24 09:57 08/01/24 09:57 08/01/24 09:57
I&O
07/31/24 08/01/24 08/02/24
06:59 06:59 06:59
Intake Total 50 / 50
Balance 50 / 50
Review of Systems
-
History Source: Patient
All other systems: Reviewed and negative
Physical Exam
-
General: Well Developed, Well Nourished, No Apparent Distress and Comfortable
HEENT: Normocephalic, Nose Appears Normal and Ears Appear Normal
Neuro: Awake, Alert, Oriented and AO x 3
Psych: Calm
Data Reviewed
-
Labs: Labs Reviewed by me
--- NOTE | 2024-08-01 14:42 | W.DCSUMMARY ---
Discharge Summary
Discharge Data
Date of Admission: 07/31/24
Date of Discharge: 08/01/24
Total time spent discharging patient (in min): 40
-
Pending Results: No
Hospital Course
63-year-old woman with past medical history of
left ureteral stone,
paroxysmal atrial fibrillation status post PVI and pulsed field ablation,
nonrheumatic mitral regurgitation,
hypertension,
obstructive sleep apnea CPAP,
breast cancer status post mastectomy 2020,
osteopenia,
lung nodule
presented back to the emergency room with worsening left flank pain, nausea and vomiting. Symptoms originally started 8 days ago. Denies any fevers or chills. Denies diarrhea. Has some pressure in the bladder area. 3 days ago she came to ED for
the same symptoms but with hematuria at that time. She was diagnosed with left ureteral stone and discharged.
1. Left distal ureteral stone with mild left hydronephrosis
had lithotripsy today. She did well and was discharged by Urology service
Follow up with urology as outpatient.
2. JOSE secondary to Ibuprofen/ARB/prerenal
-improved after IV fluids
-continue to Hold hydrochlorothiazide, irbesartan ibuprofen
-follow up with PCP to document full resolution
3. Paroxysmal atrial fibrillation status post PVI/pulsed field ablation
-Continue diltiazem
-Held Xarelto prior to procedure
4. Other issues:
Nonrheumatic mitral regurgitation
Essential hypertension
-Hold hydrochlorothiazide
Obstructive sleep apnea
-continue On CPAP
Breast cancer status post mastectomy in 2020
-Continue letrozole
Osteopenia
History of lung nodule
Anxiety/depression
-Continue Ativan
Discharge Plan
-
Patient Disposition: Home (Routine Discharge)
Discharge Diagnosis/Procedures: you had a left ureteral stone and underwent a left ureteroscopy/laser lithotripsy and stent
Condition: Fair
Diet: No restrictions
Activity: No restrictions
Bathing Restrictions: OK to Shower
Wound Care: expect blood in urine especially with xarelto; expect urinary frequency and urgency and some discomfort with urination
Referrals:
Allyssa Thomason MD [Family Provider] -
Alex Rick Jr., MD [Active] - (call dr rick's office on saturday to schedule stent removal- ask for walter)
Prescriptions:
New
tramadol 50 mg tablet
50 mg PO Q8H PRN (Reason: Pain) Qty: 20 0RF
phenazopyridine [Pyridium] 100 mg tablet
100 mg PO BID Qty: 20 0RF
nitrofurantoin macrocrystal 50 mg capsule
50 mg PO HS Qty: 14 0RF
Continued
lorazepam 0.5 MG tablet
0.5 mg PO DAILYPRN PRN (Reason: severe anxiety)
hydrochlorothiazide 25 MG tablet
25 mg PO DAILY
irbesartan 300 MG tablet
300 mg PO DAILY
letrozole 2.5 mg Tablet
2.5 mg PO DAILY
Ca-D3-mag [id number]-cge-adelaide-bor [Calcium 600-D3 Plus (mag-zinc)] 600 mg calcium- 20 mcg-50 mg Tablet
1 tab PO BID
diltiazem HCl 240 mg Capsule,Ext.Rel 24h Degradable
240 mg PO DAILY
calcium carbonate [Tums] 200 mg calcium (500 mg) Tablet,Chewable
200 mg PO BIDPRN PRN (Reason: gerd)
Held
Xarelto 20 mg Tablet
20 mg PO DAILY
Hold Instructions: Resume on 08/02/24.
Rx Instructions:
on hold
Discontinued
ondansetron 4 mg Tablet,Disintegrating
4 mg PO TIDPRN PRN (Reason: nausea/vomiting) Qty: 6 0RF
tamsulosin [Flomax] 0.4 mg capsule
0.4 mg PO DAILY Qty: 14 0RF
Rx Instructions:
for 14 days starting 07/28/24
oxycodone-acetaminophen [Percocet] 5-325 mg tablet
1 tab PO Q6HPRN PRN (Reason: severe pain)
Discharge Orders:
Discharge Patient (As Directed); Ordered 08/01/24
Ordered By: Alex Rick Jr.
Discharge Date and Time
Discharge Date/Time: 08/01/24 13:11
Print Language: GREEK
== END 2024-08-01 13:11 | disposition home or self-care (01) | DRG 660 ==
LOC: 3 WEST ACU 15:54
PROVIDERS: Emergency Medicine; ADMITTING PHYSICIAN Hospitalist; ATTENDING PHYSICIAN Internal Medicine; CONSULT PHYSICIAN Specialist; EMERGENCY PHYSICIAN Emergency Medicine; FAMILY PHYSICIAN Family Medicine
PROC: 0T778DZ Dilation of Left Ureter with Intraluminal Device, Via Natural or Artificial Opening Endoscopic (ICD-10-PCS; 2024-08-01)
PROC: 0TC78ZZ Extirpation of Matter from Left Ureter, Via Natural or Artificial Opening Endoscopic (ICD-10-PCS; 2024-08-01)
DX: N13.2 Hydronephrosis with renal and ureteral calculous obstruction (principal); Z68.41 Body mass index [BMI] 40.0-44.9, adult; N17.9 Acute kidney failure, unspecified; I48.0 Paroxysmal atrial fibrillation; E78.00 Pure hypercholesterolemia, unspecified; I10 Essential (primary) hypertension; I34.0 Nonrheumatic mitral (valve) insufficiency; M85.80 Other specified disorders of bone density and structure, unspecified site; R91.1 Solitary pulmonary nodule; G47.33 Obstructive sleep apnea (adult) (pediatric); G89.29 Other chronic pain; M54.9 Dorsalgia, unspecified; E66.9 Obesity, unspecified; F32.A Depression, unspecified; F41.9 Anxiety disorder, unspecified; Z60.2 Problems related to living alone; Z90.11 Acquired absence of right breast and nipple; Z85.3 Personal history of malignant neoplasm of breast; Z88.8 Allergy status to other drugs, medicaments and biological substances; Z79.01 Long term (current) use of anticoagulants; Z79.811 Long term (current) use of aromatase inhibitors; Z87.442 Personal history of urinary calculi
CPT/HCPCS: 74018; 76000; 80053; 81003; 81015; 82365; 85025; 87086; 96374; 96375; 99284; C2617

== ENCOUNTER → 2025-03-11 09:32 | Outpatient (REF) | payer MEDICARE, SELFPAY | LOC: HWRAD 09:32 | PROVIDERS: ATTENDING PHYSICIAN Internal Medicine Critical Care Medicine; FAMILY PHYSICIAN Family Medicine | DX: R91.1 Solitary pulmonary nodule (principal) | CPT/HCPCS: 71250 ==